=== PATIENT | male | born 1940 | race Caucasian/White ===

== ENCOUNTER 2020-01-01 10:23 | Outpatient (CLI) | payer MEDICARE, BC, SELFPAY ==
--- NOTE | ~2020-01-01 | US_ITS ---
EXAMINATION: US renal BI DATE: 01/01/2020 11:20 INDICATION: Nonspecific abnormal results of function studies of kidney. TECHNIQUE: Multiple ultrasound grayscale images of the kidneys were obtained. COMPARISON: CT abdomen and pelvis 03/14/2010 FINDINGS: The right kidney measures 10.6 x 5.6 x 4.9 cm. The left kidney measures 13.6 x 6.0 x 5.4 cm. The kidn eys demonstrate normal parenchymal echogenicity. There is a 4.1 cm isoechoic mass in upper pole of le ft kidney. There is no hydronephrosis. The bladder is normal. IMPRESSION: 1. Normal kidney sizes. No hydronephrosis. 2. 4.1 cm isoechoic mass in upper pole of left kidney, which may be normal renal parenchyma or a sharon d neoplasm. Abdomen CT without and with contrast is recommended. Reviewed, dictated and finalized at location A. IMPRESSION: 1. Normal kidney sizes. No hydronephrosis. 2. 4.1 cm isoechoic mass in upper pole of left kidney, which may be normal saadia l parenchyma or a solid neoplasm. Abdomen CT without and with contrast is recom mended.
== END 2020-01-01 10:24 | disposition home or self-care (01) ==
LOC: ANHIMG 10:28
PROVIDERS: PCP Family Medicine; Visit Provider Internal Medicine Nephrology
DX: R94.4 Abnormal results of kidney function studies (principal)
CPT/HCPCS: 76775

== ENCOUNTER 2020-11-13 13:33 | Outpatient (CLI) | payer MEDICARE, BC, SELFPAY ==
--- NOTE | ~2020-11-13 | XR_ITS ---
EXAMINATION:XR_[id number]_CR DATE: 11/13/2020 14:02 INDICATION: Neck pain TECHNIQUE: AP, lateral, and odontoid views of the cervical spine are provided. COMPARISON: None FINDINGS: There are 3 mm of retrolisthesis of C5 on C6. The odontoid is intact. No fracture is identi fied. The vertebral body heights are maintained. There is severe loss of intervertebral disc space he ight at C5-6 and C6-7. Small degenerative osteophytes project from the anterior endplates of multiple vertebral bodies. There is moderate facet and uncovertebral joint osteoarthritis of the lower cervic al spine. Prevertebral soft tissues are normal. IMPRESSION: 1. Severe spondylosis of the lower cervical spine without acute findings. Reviewed, dictated and finalized at location A. BACKING STENCILER
== END 2020-11-13 13:34 | disposition home or self-care (01) ==
LOC: ANHIMG 13:40
PROVIDERS: PCP Nurse Practitioner Family; Visit Provider Nurse Practitioner Family
DX: M54.2 Cervicalgia (principal); M47.812 Spondylosis without myelopathy or radiculopathy, cervical region
CPT/HCPCS: 72040

== ENCOUNTER 2021-04-25 11:28 | Emergency (ER) | payer MEDICARE, BC, SELFPAY ==
--- NOTE | ~2021-04-25 | XR_ITS ---
EXAMINATION: XR finger 2nd LT min 2V EXAM DATE: 04/25/2021 13:52 INDICATION: Infection sore anterior side of left 2nd finger. TECHNIQUE: Left 2nd finger frontal, lateral and oblique projections obtained and reviewed. There i s no prior study for comparison. FINDINGS: Diffuse swelling over the left 2nd finger. There is moderate DIP, mild to moderate PIP everardo bethany osteoarthritis. There are small soft tissue defect along the volar aspect of the phalanx. There are no bony erosions identified. There are no acute fractures identified. Scattered arterial scleros is. IMPRESSION: 1. Soft tissue swelling, probable small ulceration. 2. Osteoarthritis. Reviewed, dictated and finalized at location B.
[2021-04-25 11:31] VITALS: BP 145/60; PULSE 58; RESP 18; TEMP 36; O2SAT 98
[2021-04-25 13:27] LABS: Basophils Percent Auto 0.4 % (0.2-1.2); Eosinophils Absolute Auto 0.1 K/mm3 (0-0.3); Eosinophils Percent Auto 1.1 % (0-4.4); Hematocrit 39.9 % (42.0-52.0); Hemoglobin 12.6 g/dL (14.0-18.0); Immature Granulocyte Absolute 0.03 K/mm3 (0.00-0.031); Immature Granulocyte Percent A 0.5 % (0-0.5); Lymphocytes Absolute Auto 0.68 K/mm3 (0.9-3.2); Lymphocytes Percent Auto 12.3 % (18.3-44.2); Mean Corpuscular HGB Conc 31.6 g/dl (32-36); Mean Corpuscular Volume 91.7 fl (80-100); Mean Platelet Volume 9.7 fl (7.4-10.4); Monocytes Absolute Auto 0.7 K/mm3 (0.1-0.6); Neutrophils Percent Auto 72.7 % (45.5-73.1); Platelet Count Result 193 k/mm3 (150-375); Red Blood Count 4.35 M/mm3 (4.6-6.20); Red Cell Distribution Width 14.7 % (11.5-14.5); White Blood Count 5.5 K/mm3 (4.5-10.0)
[2021-04-25 13:39] LABS: Anion Gap 13 mmol/L (8-16); Blood Urea Nitrogen 44 mg/dL (9-20); Carbon Dioxide 21 mmol/L (22-30); Chloride 103 mmol/L (98-107); Estimated CRCL calculation 43 ml/min; Estimated Glomerular Filt Rate 53; Glucose 199 mg/dL (65-110); Potassium 4.6 mmol/L (3.4-5.0); Sodium 137 mmol/L (137-145)
--- NOTE | 2021-04-25 14:07 | ED.SKABFB ---
HPI - Skin/Abscess/Foreign Bdy General Chief complaint: Skin/Abscess/Foreign Body Stated complaint: finger infection Time Seen by Provider: 04/25/21 12:00 History of Present Illness HPI narrative: Patient is an 80-year-old male who presents ER with a left second digit infection. Patient reports about 10 days ago he started having some discomfort in his finger. Mildly about 7 days ago he started develop some pustules/vesicles on the top of his finger at the DIP. His foods progressive to erythema of the finger with swelling. Limited range of motion due to swelling. Only mild amount of pain. No fevers or chills or sweats. No lymphangitic streaking up the arm. PCP recently started him on clindamycin 2 days ago. Patient denies working in the garden. The only thing he does outside is played golf. Related Data Home Medications Medication Instructions Recorded Confirmed amiodarone 200 mg tablet 200 mg PO DAILY 07/20/19 04/25/21 aspirin 81 mg tablet,delayed 81 mg PO DAILY 07/20/19 04/25/21 release carvedilol 3.125 mg tablet 3.125 mg PO BID tablet 07/20/19 04/25/21 famotidine-Ca carb-mag hydrox 10 1 tablet PO DAILY PRN 04/04/20 04/25/21 mg-800 mg-165 mg chewable tablet lisinopril 40 mg tablet 20 mg PO DAILY tablet 04/04/20 04/25/21 Allergies Allergy/AdvReac Type Severity Reaction Status Date / Time No Known Allergies Allergy Verified 05/13/20 08:41 Review of Systems Review of Systems: All systems reviewed & are unremarkable except as noted in HPI and below Constitutional: Constitutional: Denies chills, Denies fever(s) and Denies weakness Musculoskeletal: Musculoskeletal: Denies arthralgias, Denies joint swelling and Denies muscle cramps Integumentary/Breasts: Skin/Breast: Reports erythema, Denies rash and Reports skin ulcer Neurologic: Denies focal weakness and Denies numbness PMFSH Past Medical History Medical History Afib Allergic rhinitis Anemia Atrial tachycardia BPH loc w urin obs/LUTS CAD in [place] artery Cellulitis of finger of left hand Cerumen impaction Cervicalgia CKD (chronic kidney disease) stage 3, GFR 30-59 ml/min Decreased white blood cell count, unspecified H/O: HTN (hypertension) Heart disease History of [place] (myocardial infarction) History of peptic ulcer disease Hyperlipidemia with target low density lipoprotein (LDL) cholesterol less than 100 mg/dL Hypertension Neoplasm of skin Normal colonoscopy JOSE ALBERTO on CPAP Osteoarthritis Primary insomnia Tinnitus Type 2 diabetes mellitus Surgical History Surgical History History of bladder surgery History of cardiac cath History of coronary artery bypass graft History of tonsillectomy Family History Family History Mother Diabetes mellitus Cerebrovascular accident Hypertension Heart disease Sibling Diabetes mellitus Lupus (systemic lupus erythematosus) Cerebrovascular accident Cancer Hypertension Heart disease Grandparent Diabetes mellitus Heart disease Other Aneurysm Breast cancer COPD (chronic obstructive pulmonary disease) Social History Social History Years smoked: 5 Smoking status: Former smoker Second hand tobacco smoke exposure: No Smoking end date: 09/27/1963 Alcohol intake: former Alcohol use details: 5 years ago. Substance use: never Substance use type: does not use Gender identity (if verbalized by the patient): Male Spiritual care concerns: Yes Agree to blood products: Yes Exam Narrative: GENERAL: Well-appearing, well-nourished, and in no acute distress. HEAD: Normocephalic, atraumatic. EXTREMITIES: Focused exam of the right hand reveals swelling to the second digit with a blister wrapping from the dorsal aspect of the finger around to the palmar as
[2021-04-25 14:26] VITALS: BP 148/62; PULSE 60; RESP 16; O2SAT 100
== END 2021-04-25 14:27 | disposition home or self-care (01) ==
PROVIDERS: Emergency Provider Emergency Medicine; PCP Family Medicine
DX: B00.89 Other herpesviral infection (principal); I48.91 Unspecified atrial fibrillation; D64.9 Anemia, unspecified; N40.1 Benign prostatic hyperplasia with lower urinary tract symptoms; N13.8 Other obstructive and reflux uropathy; I25.10 Atherosclerotic heart disease of native coronary artery without angina pectoris; E11.22 Type 2 diabetes mellitus with diabetic chronic kidney disease; I12.9 Hypertensive chronic kidney disease with stage 1 through stage 4 chronic kidney disease, or unspecified chronic kidney disease; N18.30 Chronic kidney disease, stage 3 unspecified; I25.2 Old myocardial infarction; E78.5 Hyperlipidemia, unspecified; G47.33 Obstructive sleep apnea (adult) (pediatric); M19.042 Primary osteoarthritis, left hand; Z95.1 Presence of aortocoronary bypass graft; Z85.828 Personal history of other malignant neoplasm of skin; Z87.11 Personal history of peptic ulcer disease; Z79.82 Long term (current) use of aspirin; Z79.84 Long term (current) use of oral hypoglycemic drugs
CPT/HCPCS: 11042; 36415; 73140; 80048; 85025; 99283

== ENCOUNTER 2021-05-21 10:44 | Outpatient (CLI) | payer MEDICARE, BC, SELFPAY ==
--- NOTE | ~2021-05-21 | XR_ITS ---
EXAMINATION: XR finger 2nd LT min 2V DATE: 05/21/2021 11:20 INDICATION: Cellulitis and swelling of the left index finger TECHNIQUE: Dorsal palmar, lateral and oblique views of the left second digit were obtained COMPARISON: 04/25/2021 FINDINGS: No fracture. Polyarticular osteoarthritis, severe at the first carpometacarpal and second distal inte rphalangeal joints and mild at the first interphalangeal and second proximal interphalangeal joints. There is new osteolysis with both increased intramedullary lucency as well as loss of the previously clearly discernible articular cortex at the ulnar and palmar aspects of the base of the second distal phalanx which is concerning for septic arthritis with osteomyelitis. Persistent prominent soft tissu e swelling about the second digit. Scattered arterial vascular calcifications. IMPRESSION: 1. Osteolysis at the base of the left second distal phalanx suspicious for septic arthritis and osteo myelitis. Could consider further evaluation with pre and postcontrast MRI if this would affect clinic al management. Reviewed, dictated and finalized at location B. IMPRESSION: 1. Osteolysis at the base of the left second distal phalanx suspicious for sept ic arthritis and osteomyelitis. Could consider further evaluation with pre and postcontrast MRI if this would affect clinical management.
== END 2021-05-21 10:45 | disposition home or self-care (01) ==
PROVIDERS: PCP Family Medicine; Visit Provider Nurse Practitioner Family
DX: L03.012 Cellulitis of left finger (principal); R60.9 Edema, unspecified
CPT/HCPCS: 73140

== ENCOUNTER 2021-06-01 13:29 | Outpatient (CLI) | payer MEDICARE, BC, SELFPAY ==
--- NOTE | ~2021-06-01 | MR_ITS ---
EXAMINATION: MR hand LT wo/w con DATE: 06/01/2021 15:20 INDICATION: Left index finger osteomyelitis. TECHNIQUE: Magnetic resonance imaging (MRI) of the left hand was performed without and with 17 mL Mul tiHance intravenous contrast. Sequences included axial, coronal, and sagittal T1-weighted FSE and T2- weighted FS FSE, axial T1-weighted FS FSE, and postcontrast coronal and axial T1-weighted FS FSE. COMPARISON: Left hand second digit radiographs 04/25/2021, 05/21/2021 FINDINGS: Bone alignment is normal. No fracture. There is bone marrow edema involving diaphysis and h ead of second middle phalanx and the proximal two-thirds of second distal phalanx, consistent with os teomyelitis. There are skin defects near second distal interphalangeal joint. There is a 6 x 5 x 7 mm nonenhancing abscess palmar to the flexor tendon at the neck of second middle phalanx. There is mild flexor tenosynovitis of the second digit. There is soft tissue swelling of the second digit. There i s mild to moderate osteoarthritis of many of the interphalangeal joints. IMPRESSION: 1. Osteomyelitis involving second middle and distal phalanges. 2. 6 x 5 x 7 mm abscess palmar to the flexor tendon at the neck of second middle phalanx. 3. Mild flexor tenosynovitis of the second digit. Reviewed, dictated and finalized at location A. IMPRESSION: 1. Osteomyelitis involving second middle and distal phalanges. 2. 6 x 5 x 7 mm abscess palmar to the flexor tendon at the neck of second middl e phalanx. 3. Mild flexor tenosynovitis of the second digit.
[2021-06-01 14:36] LABS: Estimated Glomerular Filt Rate 49
== END 2021-06-01 13:30 | disposition home or self-care (01) ==
PROVIDERS: PCP Family Medicine; Visit Provider Plastic Surgery
DX: M86.8X4 Other osteomyelitis, hand (principal); M65.9 Synovitis and tenosynovitis, unspecified; L02.91 Cutaneous abscess, unspecified
CPT/HCPCS: 73220; A9577

== ENCOUNTER 2021-07-07 12:21 | Outpatient (CLI) | payer MEDICARE, BC, SELFPAY ==
--- NOTE | ~2021-07-07 | XR_ITS ---
XR finger 2nd LT min 2V DATE: 07/07/2021 12:48 INDICATION: Osteomyelitis TECHNIQUE: 3 views COMPARISON: 05/21/2021 left second digit FINDINGS: There is loss of distal interphalangeal joint space and bone destruction involving the neck and head of the middle phalanx and particularly prominently the base of the distal phalanx, consiste nt with septic arthritis and associated osteomyelitis of the apposing middle and distal phalanges. There is soft tissue swelling of the second digit, particularly distally. There is prominent arterial calcification of the metacarpal and interphalangeal arteries, most consis tent with diabetes IMPRESSION: Further advance of septic arthritis at the distal interphalangeal joint with osteomyeliti s including prominent bone destruction at the neck and head of the middle phalanx and the base of the distal phalanx Reviewed, dictated and finalized at location B. IMPRESSION: Further advance of septic arthritis at the distal interphalangeal j oint with osteomyelitis including prominent bone destruction at the neck and he ad of the middle phalanx and the base of the distal phalanx
== END 2021-07-07 12:22 | disposition home or self-care (01) ==
LOC: ANHIMG 12:26
PROVIDERS: PCP Nurse Practitioner Family; Visit Provider Plastic Surgery
DX: M86.142 Other acute osteomyelitis, left hand (principal)
CPT/HCPCS: 73140

== ENCOUNTER 2021-08-05 13:43 | Outpatient (CLI) | payer MEDICARE, BC, SELFPAY ==
--- NOTE | ~2021-08-05 | XR_ITS ---
EXAMINATION: XR finger 2nd LT min 2V EXAM DATE: 08/05/2021 14:31 INDICATION: Osteomyelitis. TECHNIQUE: Left 2nd finger frontal, lateral and oblique projections obtained and reviewed. Compariso n is made to prior examination from 07/07/2021. FINDINGS: Again there are punched out lytic erosions of the left 2nd middle phalangeal head, and dif fuse erosive change of the distal phalangeal base along with overlying soft tissue swelling. These er osions are unchanged in size but appear slightly better defined compared to previous examination, whi ch could indicate cessation of active erosive change. No new erosions identified. No definite healing response at this time. Vascular calcifications, arteriosclerosis. Mild polyarticular interphalangeal osteoarthritis. IMPRESSION: Stable osteolysis left 2nd digit, consistent with subacute appearing changes of osteomyel itis. Reviewed, dictated and finalized at location A. MACY LABORATORY TECHNICIAN IMPRESSION: Stable osteolysis left 2nd digit, consistent with subacute appearin g changes of osteomyelitis.
== END 2021-08-05 13:44 | disposition home or self-care (01) ==
LOC: ANHIMG 13:52
PROVIDERS: PCP Nurse Practitioner Family; Visit Provider Plastic Surgery
DX: M86.142 Other acute osteomyelitis, left hand (principal)
CPT/HCPCS: 73140

== ENCOUNTER 2021-08-27 00:55 | Day surgery (SDC) | payer MEDICARE, BC, SELFPAY ==
[2021-08-26 10:36] VITALS: BMI 27.3
--- NOTE | 2021-08-26 10:51 | PC.NURSE ---
Report to the Outpatient Waiting Room, entrance under the green pavilion located off [facility], at time ___914____ on date __08/27/21 . OR Time: ____1014____. - You and your visitor will be asked a series of questions to screen for COVID 19 for your protection. - A mask is required within the hospital. - Only one visitor is allowed at this time. Patient visitors will be guided where to wait when not with patient. Preoperative COVID Testing Requirements: No COVID Test needed if: (proof is required; if not received patient will have Rapid Test prior to entry) - Patient has received COVID Vaccine at least 14 days prior to procedure date or - Patient has positive COVID test result within last 90 days of surgery date. COVID Test needed if above criteria is not met If not COVID vaccinated a COVID test must be conducted within 72 hours of surgery and patient is asked to isolate self from time of testing until procedure. You will go to the [facility] for your COVID testing. [facility] is located at the corner of [address] [facility]. You will only be called if COVID results are positive and your surgeon may reschedule your elective surgery date. Patients may have clear liquids (water, carbonated beverages, clear teas, apple juice) until 3 hours prior to surgery with a maximum of 20 ounces. - No food from midnight until time of surgery LIGHT BREAKFAST/LOCAL ANESTHESIA - Infants may have breast milk until 4 hours before surgery, formula 6 hours prior to surgery. - Children will be allowed to drink immediately following surgery. If applicable, please bring a bottle or sippy cup to assist with drinking. Juice, water, soda, and popsicles are readily available. For infants on formula, please bring formula the day of surgery. Pacifiers are allowed. Take the following medications with a SIP of water the morning of surgery: ____AM MEDS Medications to discontinue per physician NONE Date to take last dose Please no make-up, nail swedish, hairspray, perfume, deodorant, or body powder the day of surgery. No jewelry (including any body piercings) or valuables the day of surgery, leave them at home. Please take a shower or bath the night before, or the morning of, surgery with an antibacterial soap. Wear comfortable, loose fitting clothing. Children are encouraged to wear pajamas. - Jewelry must be removed prior to entering the operating room. Rings and piercings that are not removed may be cut off. - The hospital will not accept responsibility for valuables. - Please leave all valuables, including medications, at home the day of surgery. If you are going home after surgery, a licensed combine driver must drive you home. - NO public transportation without another adult. - We recommend that an adult stay with you for 24 hours following discharge. - We also recommend that you do not drive, make important decision, drink alcoholic beverages, or take any drugs that were not prescribed by your health care provider for at least 24 hours after your discharge time. For Pediatric surgeries, we recommend two adults accompany the child home (only one inside the building at this time). Follow any additional instructions given to you from your surgeon. Telephone instructions given to __PATIENT and asked if any additional questions and then verbalized understanding. Patient advised to call surgeon office or pre surgery nurse liaison [phone] if any additional questions.
[2021-08-27] VITALS (9 sets, daily range): BP systolic 119–140; BP diastolic 51–65; PULSE 49–51; RESP 12–22; TEMP 36.6; O2SAT 94–99
--- NOTE | 2021-08-27 07:16 | WPDHPUPDATE1 ---
History and Physical Update Update Date/Time: 08/27/21 07:16 History and Physical has been reviewed, including an updated exam of the patient. There are NO changes in the patient's condition. Risks, benefits, and alternatives have been discussed and questions answered. Patient agrees to proceed with procedure.
[2021-08-27] MEDS: LIDO 1%/EPINEPHRINE 1:100,000 50 ML VIAL INFILTRATE (11:40)
--- NOTE | 2021-08-27 12:09 | W.PM.PROC2 ---
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 There was some phlegmonous tissue within the destroyed joint space. The extensor tendon the was intact and fair condition the subcutaneous tissue under the skin flaps was viable the region of damaged tissue appeared to be limited to the joint. Description of Procedure The patient's left index finger was marked in the holding area. He was taken to the operating room where he was placed supine on the operating table. The left hand was on the hand board in this area was prepped and draped in usual fashion. The digit was blocked initially with 1% lidocaine with epinephrine. Eventually 6 milliliter of 0.5% Marcaine plain was added. The blue tourniquet was applied to the base of the finger. Three small ulcerations over the dorsal distal interphalangeal joint were connected with our incision down the dorsal midline. The patient said that he had drained fluid from those sites today and I saw pictures of that on his cellphone. The finger today looked a little less red and edematous then had the last I saw him a few days ago. Skin flaps were elevated on a to both sides about a cm on the ulnar aspect and just a few mm on the radial. The tissue proximal to the joint did not appear to be grossly infected or damaged by the long-term inflammatory process. We obtained a We obtained fluid from the joint area for aerobes and anaerobes and for AFB and fungus. We obtain some tissue for histology. And some fluid was sent in 70% isopropyl alcohol for crystals. We eventually referred from the lab that they might not be able to utilize the tissue because of the amount of blood was in that fluid in the fact that it was in isopropyl alcohol. It will nevertheless look at it. The disintegrating joint area was curetted until no additional phlegmon was material could be removed this was amorphous yellow-bower tissue without blood supply consistent with chronic inflammation. No attempt was made to repair the joint today. The site was irrigated with about 500 milliliter of saline and the dorsal wound was dressed with Mepilex Silver and gauze without a compressive wrap. He was discharged from the operating room. He will continue on the Bactrim previously ordered seems to be tolerating that. I sent did additional order for a week. We also sent a prescription for hydrocodone 7. The tourniquet was removed from the finger prior to dressing there was no significant bleeding. Estimated Blood Loss 0 Drains No Packing Yes Pathology yes Complications No immediate complications Condition stable Disposition same day
== END 2021-08-27 12:17 | disposition home or self-care (01) ==
PROVIDERS: PCP Nurse Practitioner Family; Visit Provider Plastic Surgery
PROC: (CPT 10061; principal; 2021-08-27 10:15)
DX: L02.512 Cutaneous abscess of left hand (principal); M86.142 Other acute osteomyelitis, left hand; M65.842 Other synovitis and tenosynovitis, left hand
CPT/HCPCS: 10061; 87015; 87070; 87075; 87102; 87116; 87147; 87181; 87186; 87205; 87206; 88304; 88305; 88311; A9270; J3010

== ENCOUNTER 2021-10-06 12:26 | Outpatient (CLI) | payer MEDICARE, BC, SELFPAY ==
--- NOTE | ~2021-10-06 | XR_ITS ---
EXAMINATION: XR finger 2nd LT min 2V INDICATION: Osteomyelitis follow-up TECHNIQUE: Three views of the left second finger are obtained. COMPARISON: 08/05/2021 and 07/07/2021 FINDINGS: There is osteomyelitis at the distal aspect of the second middle phalanx with interval wors ening since the comparison examinations. There is osteomyelitis involving the proximal aspect of the first distal phalanx without significant change since the comparison examination. There is unchanged mild lateral subluxation of the first distal phalanx with respect to the middle phalanx. Soft tissue swelling is seen in the second finger, predominantly in its distal aspect. Calcified atherosclerosis is noted. IMPRESSION: 1. Osteomyelitis centered at the second distal interphalangeal joint with interval worsening at the m iddle phalanx. Reviewed, dictated and finalized at location F. EL SERVICE TECHNICIAN IMPRESSION: 1. Osteomyelitis centered at the second distal interphalangeal joint with inter marium worsening at the middle phalanx.
== END 2021-10-06 12:27 | disposition home or self-care (01) ==
LOC: ANHIMG 12:31
PROVIDERS: PCP Nurse Practitioner Family; Visit Provider Plastic Surgery
DX: M86.142 Other acute osteomyelitis, left hand (principal)
CPT/HCPCS: 73140

== ENCOUNTER 2021-11-03 08:35 | Outpatient (CLI) | payer MEDICARE, BC, SELFPAY ==
--- NOTE | ~2021-11-03 | XR_ITS ---
XR finger 2nd LT min 2V DATE: 11/03/2021 08:51 INDICATION: Osteomyelitis TECHNIQUE: 4 views COMPARISON: 10/06/2021 left second digit FINDINGS: Again noted is distal interphalangeal joint destruction and apposing bone destruction at th e head of the middle phalanx and base of the distal phalanx, consistent with osteomyelitis. There is prominent second digital artery calcification in addition to metatarsal artery calcification s, likely due to diabetes. IMPRESSION: Persistent osteomyelitis centered at the distal interphalangeal joint of the second digit ; little interval change since 10/06/2021 Arterial calcification of metatarsal and digital arteries most consistent with diabetes Reviewed, dictated and finalized at location A. MITER OPERATOR IMPRESSION: Persistent osteomyelitis centered at the distal interphalangeal greg nt of the second digit; little interval change since 10/06/2021 Arterial calcification of metatarsal and digital arteries most consistent with diabetes
== END 2021-11-03 08:36 | disposition home or self-care (01) ==
PROVIDERS: PCP Nurse Practitioner Family; Visit Provider Plastic Surgery
DX: M86.142 Other acute osteomyelitis, left hand (principal)
CPT/HCPCS: 73140

== ENCOUNTER 2021-11-03 13:58 | Emergency (ER) | payer MEDICARE, BC, SELFPAY ==
--- NOTE | ~2021-11-03 | XR_ITS ---
EXAMINATION: XR finger 1st RT min 2V DATE: 11/03/2021 14:18 INDICATION: Table saw injury with laceration into the nailbed of the right thumb TECHNIQUE: Dorsal palmar, lateral and 2 oblique views of the right first digit were obtained COMPARISON: None FINDINGS: Oblique defect with sharp linear margins involving the ulnar side of the tuft of the right first dist al phalanx consistent with fracture related to the reported table saw injury. There is a small residu al bone fragment thigh proximally 3 mm from this defect. Bone alignment is otherwise unrema rkable. No other fractures identified. Polyarticular osteoarthritis, moderate severity at the first m etacarpophalangeal joint and mild at the first carpometacarpal and first interphalangeal joints. Scat tered vascular calcifications. IMPRESSION: 1. Open/compound fracture with loss of bone at the ulnar side of the tuft of the right first distal p halanx. Reviewed, dictated and finalized at location A. ICE PARTS COORDINATOR IMPRESSION: 1. Open/compound fracture with loss of bone at the ulnar side of the tuft of th e right first distal phalanx.
--- NOTE | 2021-11-03 14:06 | ED.WOUNDLAC ---
HPI - Wound/Laceration General Chief Complaint: Wound/Laceration Stated Complaint: Cut Thumb Rt on Hand Time Seen by Provider: 11/03/21 14:10 Source: patient, family, RN notes reviewed and old records reviewed Mode of arrival: ambulatory Limitations: no limitations History of Present Illness HPI narrative: 81 year old male accompanied by presents to express care with laceration to his right distal thumb from table saw injury. Patient has oblique cut across the top of thumb with part of distal nail(ulnar side) also involved with flap of skin holding thumb tissue, acute bleeding noted.Patient 's last tetanus was 2013, updated Boostrix in clinic today given. X-ray completed with compound open fracture with loss of bone distal ulnar side noted of tuft of thumb. Patient is presently under care also of Dr Centeno for left index finger abscess osteomyelitis and is presently on Bactrim after completing IV antibiotics via PICC Line. Patient is right hand dominant. Onset (ago): hour(s) (Occurred at 1345 today) Location: other (right thumb) Extremity Location: Right: hand (right thumb) Related Data Home Medications Medication Instructions Recorded Confirmed amiodarone 200 mg tablet 200 mg PO QAM 07/20/19 11/03/21 aspirin 81 mg tablet,delayed 81 mg PO DAILY 07/20/19 11/03/21 release carvedilol 3.125 mg tablet 3.125 mg PO BID tablet 07/20/19 11/03/21 amlodipine 5 mg PO QAM 08/26/21 11/03/21 lisinopril 20 mg PO QAM 08/26/21 11/03/21 metformin 1,000 mg PO BID 08/26/21 11/03/21 canagliflozin [Invokana] 300 mg PO DAILY 11/03/21 11/03/21 furosemide 10 mg PO DAILY 11/03/21 11/03/21 Allergies Allergy/AdvReac Type Severity Reaction Status Date / Time No Known Allergies Allergy Verified 11/03/21 14:00 Review of Systems Review of Systems: CONSTITUTIONAL: Denies fever, chills, or sweats. EYES: Denies visual changes, redness, or discharge. ENT: Denies rhinorrhea, congestion, sore throat, or otalgia. CARDIOVASCULAR: Denies chest pain, palpitations, or edema. RESPIRATORY: Denies cough or dyspnea. GASTROINTESTINAL: Denies abdominal pain, nausea, vomiting, or diarrhea. GENITOURINARY: Denies dysuria or hematuria. SKIN: Denies rash or itching, positive for laceration to right distal thumb with nail involvement MUSCULOSKELETAL: Denies back pain, joint pain, or myalgia. NEUROLOGIC: Denies headache, numbness, or weakness. PSYCHIATRIC: Denies anxiety or depression. All systems reviewed & are unremarkable except as noted in HPI and below PMFSH Past Medical History Medical History (Updated 11/03/21 @ 14:51 by Tanja Grady NP) Afib Allergic rhinitis Anemia Atrial tachycardia Atypical atrial flutter BPH loc w urin obs/LUTS CAD in [place] artery Cardiomyopathy, ischemic Cellulitis of finger of left hand Cerumen impaction Cervicalgia CKD (chronic kidney disease) stage 3, GFR 30-59 ml/min Decreased white blood cell count, unspecified H/O: HTN (hypertension) Heart disease History of [place] (myocardial infarction) History of peptic ulcer disease Hyperlipidemia with target low density lipoprotein (LDL) cholesterol less than 100 mg/dL Hypertension Insomnia Neoplasm of skin Normal colonoscopy JOSE ALBERTO on CPAP Osteoarthritis Primary insomnia Serum potassium elevated Tinnitus Type 2 diabetes mellitus Surgical History Surgical History History of bladder surgery History of cardiac cath History of coronary artery bypass graft History of tonsillectomy Family History Family History Mother Diabetes mellitus Cerebrovascular accident Hypertension Heart disease Sibling Diabetes mellitus Lupus (systemic lupus erythematosus) Cerebrovascular accident Cancer Hypertension Heart disease Grandparent Diabetes mellitus Heart disease Other Aneurysm Breast cancer COPD (chronic obstructive pulmonary disease) Social Hi
[2021-11-03 14:07] VITALS: BP 151/69; PULSE 62; RESP 18; TEMP 36.2; O2SAT 97
[2021-11-03] MEDS: TETANUS,DIPHTHERIA,AC PERTUSSIS ADULT (0.5 ML) BOOSTRIX IM (14:22)
== END 2021-11-03 14:30 | disposition other institution (70) ==
PROVIDERS: Emergency Provider Registered Nurse; PCP Nurse Practitioner Family
DX: S62.521B Displaced fracture of distal phalanx of right thumb, initial encounter for open fracture (principal); W31.2XXA Contact with powered woodworking and forming machines, initial encounter; Z23 Encounter for immunization; Z87.891 Personal history of nicotine dependence; Z95.1 Presence of aortocoronary bypass graft; I48.91 Unspecified atrial fibrillation; I25.10 Atherosclerotic heart disease of native coronary artery without angina pectoris; I12.9 Hypertensive chronic kidney disease with stage 1 through stage 4 chronic kidney disease, or unspecified chronic kidney disease; E11.22 Type 2 diabetes mellitus with diabetic chronic kidney disease; N18.30 Chronic kidney disease, stage 3 unspecified; I25.2 Old myocardial infarction; E78.5 Hyperlipidemia, unspecified; G47.33 Obstructive sleep apnea (adult) (pediatric); M19.90 Unspecified osteoarthritis, unspecified site
CPT/HCPCS: 73140; 90471; 90714; 90715; 99213; G0463

== ENCOUNTER 2021-12-09 08:53 | Outpatient (CLI) | payer MEDICARE, BC, SELFPAY ==
--- NOTE | ~2021-12-09 | XR_ITS ---
EXAMINATION: XR finger 2nd LT min 2V DATE: 12/09/2021 09:08 INDICATION: Osteomyelitis at the distal left second digit TECHNIQUE: Dorsal palmar, lateral and 2 oblique views of the left second digit were obtained COMPARISON: None FINDINGS: Widening of the second distal interphalangeal joint space with stable appearance of osteolysis involv ing the base of the distal phalanx and head of the middle phalanx consistent with septic arthritis an d osteomyelitis. The margins of the osteolysis remain without cortication. There is secondary mild ul homero subluxation and radial angulation at the distal interphalangeal joint. Normal alignment and remai nder of the visualized left hand. No new fractures or osteolysis. Polyarticular osteoarthritis, moder ate to severe at the first carpometacarpal joint and mild at the first metacarpophalangeal and a few of the profiled interphalangeal joints. There are scattered vascular calcification is in the visualiz ed hand. IMPRESSION: 1. No interval progression in the septic arthritis and osteomyelitis at the left second distal interp halangeal joint. Reviewed, dictated and finalized at location A. IMPRESSION: 1. No interval progression in the septic arthritis and osteomyelitis at the lef t second distal interphalangeal joint.
== END 2021-12-09 08:54 | disposition home or self-care (01) ==
LOC: ANHIMG 08:55
PROVIDERS: PCP Family Medicine; Visit Provider Plastic Surgery
DX: M86.142 Other acute osteomyelitis, left hand (principal); M18.12 Unilateral primary osteoarthritis of first carpometacarpal joint, left hand
CPT/HCPCS: 73140

== ENCOUNTER 2022-08-07 09:04 | Observation (INO) | payer MEDICARE, BC, SELFPAY ==
[2022-08-07] VITALS (15 sets, daily range): BP systolic 93–159; BP diastolic 33–78; PULSE 54–84; RESP 14–29; TEMP 36.2–37.2; O2SAT 88–100; BMI 26.2
--- NOTE | 2022-08-07 | ECHO_ITS ---
Patient Info Name: Reggie Bahena Age: 82 years : 1940 Gender: Male Ht: 71 in Wt: 192 lbs BSA: 2.10 m2 HR: 59 bpm BP: 147 / 66 mmHg Heart Rhythm: Sinus Rhythm Technical Quality: Fair Exam Date: 08/07/2022 3:41 PM Exam Location: [facility] Card Pulmonary Patient Status: Inpatient Admit Date: 08/07/2022 Staff Ordering Physician: Neymar Engle MD Relief Docking Master: Jing Reynaga RDCS Attending Provider: Manfred Espitia MD Referring Physician: Kadie NICHOLS; Exam Type: CA echo doppler color flow Study Info Indications - chf Complete two-dimensional, color flow and Doppler transthoracic echocardiogram is performed. Summary 1. Complete two-dimensional, color flow and Doppler transthoracic echocardiogram is performed. 2. Left ventricular systolic function is moderately reduced, estimated at 35-40%. 3. The posterior segment is akinetic. 4. The inferior segment is severely hypodynamic. 5. Left atrial chamber dimension is moderately enlarged. 6. There is mild mitral valve regurgitation. Left Ventricle Left ventricular chamber dimension is mildly enlarged. Left ventricular systolic function is moderately reduced, estimated at 35-40%. The left ventricular diastolic function is normal. The posterior segment is akinetic. The inferior segment is severely hypodynamic. Right Ventricle Right ventricular chamber dimension is normal. Left Atria Left atrial chamber dimension is moderately enlarged. Right Atria Right atrial chamber dimension is mildly enlarged. Aortic Valve The aortic valve is normal. Pulmonic Valve The pulmonic valve is normal. Mitral Valve The mitral valve has normal leaflets. There is mild mitral valve regurgitation. Tricuspid Valve The tricuspid valve leaflets are normal. There is mild tricuspid valve regurgitation. Pericardium/Pleural The pericardium appears normal. Aorta The aortic root size at the sinus of Valsalva is normal. Left Ventricular Outflow Tract Name Value Normal LVOT 2D LVOT Diameter 2.0 cm LVOT Doppler LVOT Peak Gradient 1 mmHg LVOT Mean Gradient 1 mmHg LVOT VTI 12 cm LVOT VTI/AV VTI Ratio 0.5 LVOT Stroke Volume 36 ml LVOT CO 2.2 l/min LVOT CI 1.1 l/min/m2 Pulmonic Valve Name Value Normal RVOT Doppler RVOT Peak Gradient 2 mmHg PV Doppler PV Peak Gradient 2 mmHg Mitral Valve Name Value Normal
--- NOTE | ~2022-08-07 | US_ITS ---
EXAMINATION: US venous doppler [facility] DATE: 08/07/2022 10:38 INDICATION: Bilateral lower limb swelling TECHNIQUE: Anderson scale images without and with compression and Doppler images of the bilateral lower e xtremity veins were obtained. COMPARISON: None FINDINGS: The right common femoral vein, profunda femoral vein, femoral vein, popliteal vein, peroneal trunk, p osterior tibial veins, and greater saphenous vein are patent. The left common femoral vein, profunda femoral vein, femoral vein, popliteal vein, peroneal trunk, po sterior tibial veins, and greater saphenous vein are patent. IMPRESSION: 1. Patent bilateral lower extremity veins. No evidence of deep venous thrombosis. Reviewed, dictated and finalized at location B. SPECIALTY SUPERVISOR IMPRESSION: 1. Patent bilateral lower extremity veins. No evidence of deep venous thrombosi s.
--- NOTE | ~2022-08-07 | XR_ITS ---
EXAMINATION: XR chest 2V DATE: 08/07/2022 09:37 INDICATION: Shortness of breath TECHNIQUE: PA and lateral views of the chest are obtained. COMPARISON: 07/21/2018 FINDINGS: There are small pleural effusions. No pneumothorax is identified. The heart size is normal. There are minimal airspace opacities of the lower lung zones. There is mild thoracic spondylosis. IMPRESSION: 1. Small pleural effusions. 2. Bibasilar airspace opacities, consistent with atelectasis versus pneumonia. Reviewed, dictated and finalized at location B. ICAL SUPERVISOR
--- NOTE | 2022-08-07 09:08 | ECG_ITS ---
Measurements Intervals [place] Rate: 69 P: -6 OR: 297 QRS: 92 QRSD: 162 T: -18 QT: 460 QTc: 495 Interpretive Statements SINUS RHYTHM WITH FIRST DEGREE AV BLOCK RIGHT BUNDLE BRANCH BLOCK ABNORMAL ECG NO PREVIOUS ECG AVAILABLE FOR COMPARISON Electronically Signed On 08-07-2022 9:34:11 ANALYTICAL CHEMISTRY TEACHER by Jaycob Abel D.O.
[2022-08-07 09:28] LABS: Basophils Percent Auto 0.7 % (0.2-1.2); Eosinophils Absolute Auto 0.1 K/mm3 (0-0.3); Eosinophils Percent Auto 1.5 % (0-4.4); Hematocrit 40.4 % (42.0-52.0); Hemoglobin 12.7 g/dL (14.0-18.0); Immature Granulocyte Absolute 0.02 K/mm3 (0.00-0.031); Immature Granulocyte Percent A 0.5 % (0-0.5); Lymphocytes Absolute Auto 0.81 K/mm3 (0.9-3.2); Mean Corpuscular HGB Conc 31.4 g/dl (32-36); Mean Corpuscular Volume 95.3 fl (80-100); Monocytes Absolute Auto 0.5 K/mm3 (0.1-0.6); Monocytes Percent Auto 13.1 % (2.6-8.5); Neutrophils Absolute Auto 2.6 K/mm3 (1.3-6.7); Neutrophils Percent Auto 64.2 % (45.5-73.1); Platelet Count Result 168 k/mm3 (150-375); Red Blood Count 4.24 M/mm3 (4.6-6.20); Red Cell Distribution Width 14.8 % (11.5-14.5); White Blood Count 4.1 K/mm3 (4.5-10.0)
[2022-08-07 09:39] LABS: INR 1.1; Prothrombin Time 13.6 Seconds (11.1-14.7)
[2022-08-07 09:40] LABS: Alanine Aminotransferase 27 U/L (6-50); Albumin Level 4.7 g/dL (3.5-5.1); Alkaline Phosphatase 81 U/L (38-126); Anion Gap 13 mmol/L (8-16); Aspartate Amino Transferase 34 U/L (17-59); Bilirubin,Total 0.7 mg/dL (0.2-1.3); Blood Urea Nitrogen 30 mg/dL (9-20); Calcium 9.7 mg/dL (8.4-10.2); Carbon Dioxide 23 mmol/L (22-30); Chloride 102 mmol/L (98-107); Estimated CRCL calculation 44 ml/min; Estimated Glomerular Filt Rate 58; Glucose 103 mg/dL (65-110); Partial Thromboplastin Time 32.4 SECONDS (22.3-36.8); Potassium 4.7 mmol/L (3.4-5.0); Sodium 138 mmol/L (137-145)
--- NOTE | 2022-08-07 09:41 | ED.SOB ---
HPI - SOB/Dyspnea General Chief Complaint: Shortness of Breath/Dyspnea <Rhea Kelly PA-C - Last Filed: 08/07/22 18:27> Stated Complaint: retaining fluid <Rhea Kelly PA-C - Last Filed: 08/07/22 18:27> Time Seen by Provider: 08/07/22 09:37 <CONCEPCION Trevizo Last Filed: 08/07/22 18:27> Source: patient <CONCEPCION Trevizo Last Filed: 08/07/22 18:27> Mode of arrival: ambulatory <CONCEPCION Trevizo Last Filed: 08/07/22 18:27> Limitations: no limitations <CONCEPCION Trevizo Last Filed: 08/07/22 18:27> History of Present Illness HPI Narrative: Patient is an 82-year-old male who presents the ED with report of SOB and BLE edema. Patient reports having nonpainful swelling in his bilateral lower extremities, feet, ankles for the past 3 days. He denies ever having swelling like this before. He is not on any diuretic therapy. Denies history of heart failure. He also reports having increased shortness of breath, worse with exertion and laying flat over the past 3 days. He saw his primary care doctor today who referred him to the ED for further evaluation. Patient sees Dr. Avina for history of atrial fibrillation and CAD. He denies any chest pain over the last 3 days. Denies recent cough or cold symptoms, fevers, abdominal pain, nausea, vomiting. <Rhea Kelly PA-C - Last Filed: 08/07/22 18:27> Related Data Home Medications: Home Medications Medication Instructions Recorded Confirmed amiodarone 200 mg tablet 200 mg PO QAM 07/20/19 08/07/22 aspirin 81 mg tablet,delayed 81 mg PO DAILY 07/20/19 08/07/22 release carvedilol 3.125 mg tablet 3.125 mg PO BID 07/20/19 08/07/22 cholecalciferol (vitamin D3) 125 125 mcg PO DAILY 03/16/22 08/07/22 mcg (5,000 unit) capsule dapagliflozin 10 mg tablet 10 mg PO DAILY 03/16/22 08/07/22 (Farxiga) mecobalamin (vitamin B12) 1,000 1,000 mcg PO DAILY 03/16/22 08/07/22 mcg chewable tablet lovastatin 40 mg tablet 40 mg PO DAILY 07/21/22 08/07/22 <Rhea Kelly PA-C - Last Filed: 08/07/22 18:27> Allergies/Adverse Reactions: Allergies Allergy/AdvReac Type Severity Reaction Status Date / Time No Known Allergies Allergy Verified 08/07/22 13:35 <Rhea Kelly PA-C - Last Filed: 08/07/22 18:27> Review of Systems Review of Systems: CONSTITUTIONAL: Denies fever, chills, or sweats. ENT: Denies rhinorrhea, congestion, sore throat. CARDIOVASCULAR: Reports BLE edema. Denies chest pain. RESPIRATORY: Reports SOB, CORTÉS, orthopnea. Denies cough. GASTROINTESTINAL: Denies abdominal pain, nausea, vomiting. SKIN: Denies rash or itching. MUSCULOSKELETAL: Denies BLE pain. NEUROLOGIC: Denies tingling, numbness, or weakness. <Rhea Kelly PA-C - Last Filed: 08/07/22 18:27> All systems reviewed & are unremarkable except as noted in HPI and below <Rhea Kelly PA-C - Last Filed: 08/07/22 18:27> [facility] Past Medical History Medical History: Medical History Acute systolic (congestive) heart failure Afib Allergic rhinitis Anemia Atrial tachycardia Atypical atrial flutter B12 deficiency BPH loc w urin obs/LUTS CAD in [place] artery Cardiomyopathy, ischemic Cellulitis of finger of left hand Cerumen impaction Cervicalgia CKD (chronic kidney disease) stage 3, GFR 30-59 ml/min Decreased white blood cell count, unspecified H/O: HTN (hypertension) Heart disease History of [place] (myocardial infarction) History of peptic ulcer disease Hyperlipidemia with target low density lipoprotein (LDL) cholesterol less than 100 mg/dL Hypertension Insomnia Neoplasm of skin Normal colonoscopy JOSE ALBERTO on CPAP Osteoarthritis Primary insomnia Serum potassium elevated Tinnitus Type 2 diabetes mellitus Type 2 diabetes mellitus with mild nonproliferative diabetic retinopathy without macular edema, bilateral (05/19
[2022-08-07 09:51] LABS: NT Pro B Type Natriuretic Pept 5900 pg/mL (5-100); Troponin I < 0.012 ng/mL (0.000-0.034)
[2022-08-07] MEDS: FUROSEMIDE INJ 40 MG/4 ML VIAL IV PUSH (10:54)
[2022-08-07 11:00] LABS: Influenza A QL RT-PCR Negative (Negative); Influenza B QL RT-PCR Negative (Negative); SARS-CoV-2 RNA PCR Negative
--- NOTE | 2022-08-07 12:44 | PC.NURSE ---
Patient care report called to NEHA Corrales. All questions answered at this time.
--- NOTE | 2022-08-07 13:08 | PM.IMHP ---
H&P: HPI History of Present Illness Date/Time: 08/07/22 13:08 Chief Complaint: Shortness of breath 3 days Narrative: 82 years old male with history of coronary artery disease and chronic atrial fibrillation was admitted through the emergency room with complaints of having increased shortness of breath, increased edema of the lower extremity, dyspnea on exertion and paroxysmal nocturnal dyspnea going on for the last 3 days. Patient however denies any chest pain. patient denies fever and chills. No nausea or vomiting. Patient was seen by his primary care doctor in the office today and was advised to go to the emergency room for evaluation. Review of Systems Review of Systems: All systems reviewed & are unremarkable except as noted in HPI and below ( in the history and physical examination.) [facility] Past Medical History Medical History (Updated 08/07/22 @ 13:14 by Neymar Engle MD) Acute systolic (congestive) heart failure Afib Allergic rhinitis Anemia Atrial tachycardia Atypical atrial flutter B12 deficiency BPH loc w urin obs/LUTS CAD in [place] artery Cardiomyopathy, ischemic Cellulitis of finger of left hand Cerumen impaction Cervicalgia CKD (chronic kidney disease) stage 3, GFR 30-59 ml/min Decreased white blood cell count, unspecified H/O: HTN (hypertension) Heart disease History of [place] (myocardial infarction) History of peptic ulcer disease Hyperlipidemia with target low density lipoprotein (LDL) cholesterol less than 100 mg/dL Hypertension Insomnia Neoplasm of skin Normal colonoscopy JOSE ALBERTO on CPAP Osteoarthritis Primary insomnia Serum potassium elevated Tinnitus Type 2 diabetes mellitus Type 2 diabetes mellitus with mild nonproliferative diabetic retinopathy without macular edema, bilateral (05/19/22) Dilated eye exam 05/19/2022 with mild nonproliferative diabetic retinopathy with no macular edema Vitamin D deficiency Surgical History Surgical History History of bladder surgery History of cardiac cath History of coronary artery bypass graft History of tonsillectomy Family History Family History Mother Diabetes mellitus Cerebrovascular accident Hypertension Heart disease Sibling Diabetes mellitus Lupus (systemic lupus erythematosus) Cerebrovascular accident Cancer Hypertension Heart disease Grandparent Diabetes mellitus Heart disease Other Aneurysm Breast cancer COPD (chronic obstructive pulmonary disease) Social History Social History Smoking packs per day: 1 Smoking cigarettes per day: 20.0 Years smoked: 10 Smoking pack-years: 10.00 Smoking status: Former smoker Tobacco type: cigarettes Second hand tobacco smoke exposure: No Smoking end date: 03/27/1966 Alcohol intake: current Alcohol use details: Rarely Substance use: never Substance use type: does not use Lack of Transportation: No Lack of Food: Never True Current Housing: I Have Housing Concerned About Future Housing: No Difficulty Paying Gas/Electric Bills: No Difficulty Paying for Meds: No Currently Unemployed: No Education: High School Diploma/GED Difficulty w/ Childcare or Family Care: No Additional living arrangements comments: Gender identity (if verbalized by the patient): Male Spiritual care concerns: No Agree to blood products: Yes Meds Home Medications and Allergies Home Medications Medication Instructions Recorded Confirmed Type amiodarone 200 mg tablet 200 mg PO QAM 07/20/19 08/07/22 History aspirin 81 mg tablet,delayed 81 mg PO DAILY 07/20/19 08/07/22 History release carvedilol 3.125 mg tablet 3.125 mg PO BID 07/20/19 08/07/22 History amlodipine 5 mg tablet 5 mg PO QAM #90 tabs 02/01/22 08/07/22 Rx metformin 500 mg tablet,extended 1,000 mg PO BID #
--- NOTE | 2022-08-07 13:35 | ADMGEN ---
This patient, Reggie Bahena, was admitted to IMU Room 205-01. Patient/family oriented to hospital policies and general routines including ID bracelet, bed and alarms, visiting hours, pain management, procedures, bathroom and other care routines, personal items, smoking policy, room service/diet, and visiting hours. Information on how to activate the Rapid Response Team has been discussed. Patient/Family are encouraged to report perceived risks to care and to ask questions if they do not understand what they are told or what they should do.
[2022-08-07 14:25] LABS: Troponin I < 0.012 ng/mL (0.000-0.034)
--- NOTE | 2022-08-07 14:56 | PM.CNCAR ---
Assessment and Plan Assessment and plan (1) Cardiomyopathy, ischemic: Code(s): I25.5 - Ischemic cardiomyopathy Status: Acute Plan This is an 82-year-old man with ischemic heart disease known to have ischemic left ventricular dysfunction presenting for the 1st time with decompensated heart failure with reduced ejection fraction. At this point I would recommend continuing his furosemide until he is euvolemic. I am going to add spironolactone to his regimen and stop his lisinopril in anticipation of starting Entresto in about 36 hours. Depending on how hemodynamics we will slowly advance his carvedilol. In this setting I would recommend discontinuing his amlodipine as well to allow us to more effectively use guideline directed medical therapy. Echocardiogram has been ordered by the hospitalist that is fine we expected to show evidence of ischemic LV dysfunction which has a mentioned above he is known to have. Hopefully this can be brought into a state of good compensation in the next several days and he will of course be followed up as an outpatient after he is hemodynamically improved. Alvino Avina MD [facility] History of Present Illness History of Present Illness Consult date/time: 08/07/22 14:56 Reason For Visit: Acute Heart Failure Narrative: This is a very pleasant 82-year-old man with ischemic heart disease who is well known to me who enters the hospital today at the request of his PCP was saw him in the office this morning with evidence of decompensated congestive heart failure. The patient states that he went to see his physician because he noticed Wednesday and Wednesday of this week he was having some lower extremity edema that was developing he noticed this when after he got home playing a round of golf. He golfs several times per week and enjoys that. He then the last couple of nights was also having some shortness of breath with lying in the supine position and last night said he had to sit up in bed and sat in a chair for some of the night so that he could breathe. His physician saw him this morning I and by exam he appeared to be in some decompensated heart failure he was sent to the emergency room where he was evaluated and admitted. He has been given some intravenous furosemide and was placed in the IMU for further evaluation and management. He is known to me for many years and has a history of coronary disease and a prior history of atrial flutter as well. His history of coronary disease dates back to 1995 at between that year at 8:08 p.m. he underwent a couple of mentions percutaneously. He did well after that. He presented in 2018 with an episode of tachycardia and symptomatic atrial flutter. When he was tachycardic he had some ischemic changes sounding chest pain so he was brought back to the cardiac catheterization lab for re-evaluation at that time. He was found to have a total occlusion of his distal right coronary artery at that time the circumflex was occluded after the 1st marginal branch and a diagonal branch of the LAD was also occluded. His ejection fraction at that time was reduced to 35% and he has evidence of infero posterior hypokinesia. He has done well with medical therapy of this and was actually just seen in my office recently and reported no symptoms of any kind. His chest x-ray demonstrates enlargement of the cardiac silhouette and some engorgement of the vasculature. No kevin pulmonary edema. His biomarkers are negative for acute coronary syndrome he is not reporting any recent ischemic type chest pain. His medical regimen at home consists of am amiodarone, aspirin, amlodipine, carvedilol at a low dose and lisinopril. Review of Systems Constitutional: Constitutional: Reports no additional constitutional complaints Eyes: Eyes: Reports no additional eye complaints ENT: Reports system reviewed and no additional complaints, except as documented Cardiovascular: Cardiovascular: Reports as per
[2022-08-07 16:56] LABS: Glucose Point of Care 111 mg/dl (65-105)
[2022-08-07 20:59] LABS: Glucose Point of Care 131 mg/dl (65-105)
[2022-08-07] MEDS: carvediloL 3.125 MG TABLET PO (22:00)
[2022-08-07] MEDS: HEPARIN SODIUM 5,000 UNITS/ML VIAL 5000 UNITS SUB-Q (22:01)
--- NOTE | 2022-08-07 23:01 | PC.NURSE ---
VS charted for 08/07/22 at 2107 was charted in error. Information entered was for a different patient. CCT unable to undo these vital signs.
[2022-08-08] VITALS (16 sets, daily range): BP systolic 122–149; BP diastolic 54–108; PULSE 51–109; RESP 16–20; TEMP 36.3–36.7; O2SAT 92–100
[2022-08-08 04:51] LABS: Alanine Aminotransferase 23 U/L (6-50); Albumin Level 4.2 g/dL (3.5-5.1); Alkaline Phosphatase 65 U/L (38-126); Anion Gap 15 mmol/L (8-16); Aspartate Amino Transferase 30 U/L (17-59); Bilirubin,Total 0.6 mg/dL (0.2-1.3); Blood Urea Nitrogen 36 mg/dL (9-20); Carbon Dioxide 25 mmol/L (22-30); Chloride 100 mmol/L (98-107); Estimated CRCL calculation 38 ml/min; Estimated Glomerular Filt Rate 48; Glucose 125 mg/dL (65-110); Potassium 4.3 mmol/L (3.4-5.0); Sodium 140 mmol/L (137-145)
--- NOTE | 2022-08-08 07:16 | PM.PNCARD ---
Progress Note: A&P Assessment and Plan (1) Acute decompensated heart failure: Code(s): I50.9 - Heart failure, unspecified Status: Acute Plan 82-year-old man with decompensated heart failure with reduced ejection fraction. Coming into a state of euvolemic compensation. Will begin Entresto this evening after lisinopril has been discontinued. Will continue IV furosemide for another day. Of advanced carvedilol to 6.25 mg q.12 hours. Alvino Avina MD [facility] Subjective Date/time seen: Date of service: 08/08/22 07:16 Interval history: Follow-up visit in this 82-year-old man with: Ischemic cardiomyopathy and decompensated congestive heart failure. He feels better this morning os was able to lie down flat last night without dyspnea. Noticeable improvement in lower extremity edema compared with admission. Discussed echocardiographic findings with the patient Exam Const: General: comfortable and no acute distress Other: Pleasant elderly man sitting in his bedside chair no distress HENMT: Mouth: Yes moist mucous membranes Eyes: Sclera: sclerae normal Neck: Neck: supple and no JVD Resp: Effort & Inspection: normal respiratory effort Auscultation: clear to auscultation bilaterally Cardio: Rate: regular rate Rhythm: regular rhythm GI: GI Palp: Yes Soft to palpation Auscultation: normal bowel sounds Skin: General skin exam: normal color Neuro: Other: Alert and oriented x3 Extrem: Other: 1+ bipedal edema (improved) Objective Data Vital Signs Vital Signs: Vital Signs - 24 hr 08/07/22 09:10 08/07/22 09:51 08/07/22 11:05 Temperature 37.0 C Pulse Rate 75 68 61 Respiratory Rate 16 15 14 Blood Pressure 159/78 H Pulse Oximetry 100 97 98 Oxygen Delivery Room Air 08/07/22 11:15 08/07/22 11:16 08/07/22 11:48 Temperature Pulse Rate 57 L 56 L 62 Respiratory Rate 29 H 29 H 19 Blood Pressure 144/65 H Pulse Oximetry 96 97 96 Oxygen Delivery 08/07/22 12:00 08/07/22 12:01 08/07/22 12:15 Temperature Pulse Rate 54 L 58 L 65 Respiratory Rate 20 21 H 27 H Blood Pressure 135/61 Pulse Oximetry 95 94 91 Oxygen Delivery 08/07/22 12:17 08/07/22 13:26 08/07/22 14:00 Temperature 36.4 C L Pulse Rate 62 59 L Respiratory Rate 17 16 Blood Pressure 140/65 147/66 H Pulse Oximetry 95 96 Oxygen Delivery Room Air 08/07/22 16:00 08/07/22 16:00 08/07/22 20:00 Temperature 36.2 C L 36.8 C Pulse Rate 61 62 69 Respiratory Rate 16 16 Blood Pressure 93/33 L 137/59 L Pulse Oximetry 93 95 Oxygen Delivery 08/07/22 20:00 08/07/22 21:07 08/07/22 20:00 Temperature 37.2 C 36.8 C Pulse Rate 69 84 69 Respiratory Rate 16 20 16 Blood Pressure 103/34 L 137/59 L Pulse Oximetry 95 88 L 95 Oxygen Delivery Room Air 08/07/22 22:00 08/08/22 00:00 08/08/22 00:00 Temperature 36.7 C Pulse Rate 71 56 L 56 L Respiratory Rate 18 18 Blood Pressure 122/54 L Pulse Oximetry 95 95 Oxygen Delivery CPAP 08/07/22 20:00 08/07/22 22:00 08/08/22 00:00 Temperature Pulse Rate 69 69 58 L Respiratory Rate Blood Pressure Pulse Oximetry Oxygen Delivery 08/08/22 01:44 08/08/22 04:00 08/08/22 04:00 Temperature 36.3 C L Pulse Rate 62 60 60 Respiratory Rate 20 20 Blood Pressure 127/59 L Pulse Oximetry 99 99 Oxygen Delivery CPAP 08/08/22 04:00 08/08/22 06:00 Temperature Pulse Rate 62 57 L Respiratory Rate Blood Pressure Pulse Oximetry Oxygen Delivery Intake/Output Intake/Output: Intake & Output 08/05/22 08/06/22 08/07/22 08/08/22 23:59 23:59 23:59 23:59 Intake Total 360 600 Output Total 1440 400 Balance -1080 200 Meds/Results Medications: Active Medications Generic Name Dose Route Start Last Admin Trade Name Cindy PRN Reason Stop Dose Admin Amiodarone HCl 200 mg 08/08/22 08:00 Amiodarone Hcl 200 Mg Tablet PO DAILY@0800 [facility] Aspirin 81 mg 08/08/22 09:00 Aspirin 8
--- NOTE | 2022-08-08 07:33 | PM.IMPN ---
Progress Note: A&P Assessment and Plan (1) Type 2 diabetes mellitus with mild nonproliferative diabetic retinopathy without macular edema, bilateral: Onset Date: 05/19/22 Code(s): E11.3293 - Type 2 diabetes mellitus with mild nonproliferative diabetic retinopathy without macular edema, bilateral Status: Acute Assessment and Plan: a1c 7.7 continue jardiance, accuchecks, ssi (2) Cardiomyopathy, ischemic: Code(s): I25.5 - Ischemic cardiomyopathy Status: Acute Assessment and Plan: Appreciate cardiology consultation, continue amiodarone, continue Coreg at increased dose (went from 3.125-6.25 mg per Cardiology recommendations), continue IV diuresis with Lasix 40 mg daily today, start Entresto tonight after 36 hour washout from lisinopril, continue Aldactone as well (3) History of coronary artery bypass graft: Code(s): Z95.1 - Presence of aortocoronary bypass graft Status: Acute Assessment and Plan: Appreciate cardiology consultation (4) Paroxysmal atrial fibrillation: Code(s): I48.0 - Paroxysmal atrial fibrillation Status: Acute Assessment and Plan: Rate controlled (5) Edema: Code(s): R60.9 - Edema, unspecified Status: Acute Assessment and Plan: Continue IV diuresis x1 more day, anticipate discharge tomorrow on oral diuresis (6) Acute systolic (congestive) heart failure: Code(s): I50.21 - Acute systolic (congestive) heart failure Status: Acute Assessment and Plan: Improving with diuresis, near euvolemic today Plan DVT prophylaxis with heparin GI prophylaxis not indicated Code status full code Subjective Date/time seen: 08/08/22 07:33 Interval history: No overnight events noted. No chest pain or shortness of breath. No nausea, vomiting or diarrhea. No fevers or chills. Patient states his orthopnea is now resolved. Review of Systems Review of Systems: 12 point review of systems was assessed and was negative except as noted in the HPI Exam Narrative: General: No acute distress, alert and oriented per baseline HEENT: Atraumatic, normocephalic, mucous membranes moist CV: Regular rate and rhythm, S1, S2 Lungs: Clear to auscultation bilaterally, no rales or crackles noted, no wheezes, good air entry Abdomen: Soft, nontender, nondistended Extremities: Normal to inspection, trace pitting edema bilateral lower extremity Skin: No rashes noted, no lesions or wounds seen Psych: Euthymic, normal affect Objective Data Vital Signs Vital Signs: Vital Signs - 24 hr 08/07/22 09:10 08/07/22 09:51 08/07/22 11:05 Temperature 98.6 F Pulse Rate 75 68 61 Respiratory Rate 16 15 14 Blood Pressure 159/78 H Pulse Oximetry 100 97 98 Oxygen Delivery Room Air 08/07/22 11:15 08/07/22 11:16 08/07/22 11:48 Temperature Pulse Rate 57 L 56 L 62 Respiratory Rate 29 H 29 H 19 Blood Pressure 144/65 H Pulse Oximetry 96 97 96 Oxygen Delivery 08/07/22 12:00 08/07/22 12:01 08/07/22 12:15 Temperature Pulse Rate 54 L 58 L 65 Respiratory Rate 20 21 H 27 H Blood Pressure 135/61 Pulse Oximetry 95 94 91 Oxygen Delivery 08/07/22 12:17 08/07/22 13:26 08/07/22 14:00 Temperature 97.5 F L Pulse Rate 62 59 L Respiratory Rate 17 16 Blood Pressure 140/65 147/66 H Pulse Oximetry 95 96 Oxygen Delivery Room Air 08/07/22 16:00 08/07/22 16:00 08/07/22 20:00 Temperature 97.1 F L 98.3 F Pulse Rate 61 62 69 Respiratory Rate 16 16 Blood Pressure 93/33 L 137/59 L Pulse Oximetry 93 95 Oxygen Delivery 08/07/22 20:00 08/07/22 21:07 08/07/22 20:00 Temperature 99.0 F 98.3 F Pulse Rate 69 84 69 Respiratory Rate 16 20 16 Blood Pressure 103/34 L 137/59 L Pulse Oximetry 95 88 L 95 Oxygen Delivery Room Air 08/07/22 22:00 08/08/22 00:00 08/08/22 00:00 Temperature 98.0 F Pulse Rate 71 56 L 56 L Respiratory Rate 18 18 Blood Pressure 122/54 L Pulse Oximetry
[2022-08-08 08:12] LABS: Glucose Point of Care 142 mg/dl (65-105)
[2022-08-08] MEDS: carvediloL 6.25 MG TABLET PO ×2 (11:36→21:02)
[2022-08-08] MEDS: SPIRONOLACTONE 25 MG TABLET PO (11:37)
[2022-08-08] MEDS: AMIODARONE HCL 200 MG TABLET PO (11:38)
[2022-08-08] MEDS: ASPIRIN 81 MG ENTERIC TABLET PO (11:38)
[2022-08-08] MEDS: EMPAGLIFLOZIN 10 MG TABLET PO (11:38)
[2022-08-08] MEDS: HEPARIN SODIUM 5,000 UNITS/ML VIAL 5000 UNITS SUB-Q ×2 (11:39→21:01)
[2022-08-08] MEDS: FUROSEMIDE INJ 40 MG/4 ML VIAL IV PUSH (11:39)
[2022-08-08 11:59] LABS: Glucose Point of Care 178 mg/dl (65-105)
[2022-08-08 16:21] LABS: Glucose Point of Care 389 mg/dl (65-105)
[2022-08-08 20:03] LABS: Glucose Point of Care 279 mg/dl (65-105)
[2022-08-08] MEDS: SACUBITRIL/VALSARTAN 24-26 MG TABLET 1 TAB PO (21:03)
[2022-08-08] MEDS: SIMVASTATIN 20 MG TABLET 40 MG PO (21:04)
[2022-08-09] VITALS: BP 133/62; PULSE 51; PULSE 59; RESP 16; TEMP 36.5; O2SAT 96
[2022-08-09 02:00] VITALS: PULSE 60
[2022-08-09 04:00] VITALS: BP 119/51; PULSE 54; PULSE 55; RESP 18; TEMP 36.3; O2SAT 96
[2022-08-09 06:50] LABS: Basophils Percent Auto 0.6 % (0.2-1.2); Eosinophils Absolute Auto 0.1 K/mm3 (0-0.3); Eosinophils Percent Auto 2.7 % (0-4.4); Hematocrit 38.5 % (42.0-52.0); Hemoglobin 12.2 g/dL (14.0-18.0); Immature Granulocyte Absolute 0.01 K/mm3 (0.00-0.031); Immature Granulocyte Percent A 0.3 % (0-0.5); Lymphocytes Absolute Auto 0.77 K/mm3 (0.9-3.2); Lymphocytes Percent Auto 23.3 % (18.3-44.2); Mean Corpuscular HGB Conc 31.7 g/dl (32-36); Mean Corpuscular Hemoglobin 29.9 pg (26-34); Mean Corpuscular Volume 94.4 fl (80-100); Mean Platelet Volume 10.4 fl (7.4-10.4); Monocytes Absolute Auto 0.6 K/mm3 (0.1-0.6); Monocytes Percent Auto 18.5 % (2.6-8.5); Neutrophils Absolute Auto 1.8 K/mm3 (1.3-6.7); Neutrophils Percent Auto 54.6 % (45.5-73.1); Platelet Count Result 176 k/mm3 (150-375); Red Blood Count 4.08 M/mm3 (4.6-6.20); Red Cell Distribution Width 14.6 % (11.5-14.5); White Blood Count 3.3 K/mm3 (4.5-10.0)
[2022-08-09 07:10] LABS: Alanine Aminotransferase 25 U/L (6-50); Albumin Level 4.3 g/dL (3.5-5.1); Alkaline Phosphatase 66 U/L (38-126); Anion Gap 13 mmol/L (8-16); Aspartate Amino Transferase 30 U/L (17-59); Bilirubin,Total 0.7 mg/dL (0.2-1.3); Blood Urea Nitrogen 38 mg/dL (9-20); Calcium 9.1 mg/dL (8.4-10.2); Carbon Dioxide 26 mmol/L (22-30); Chloride 97 mmol/L (98-107); Estimated CRCL calculation 44 ml/min; Estimated Glomerular Filt Rate 58; Glucose 230 mg/dL (65-110); Potassium 4.6 mmol/L (3.4-5.0); Sodium 136 mmol/L (137-145)
[2022-08-09 08:19] LABS: Glucose Point of Care 230 mg/dl (65-105)
[2022-08-09 08:20] VITALS: BP 132/54; PULSE 53; RESP 16; TEMP 36.3; O2SAT 100
--- NOTE | 2022-08-09 08:44 | PM.DS ---
DS: Admitting Diagnosis Discharge Date August 09, 2022 Admitting Diagnosis Shortness of breath DS: Discharge Diagnosis Discharge Diagnosis (1) Type 2 diabetes mellitus with mild nonproliferative diabetic retinopathy without macular edema, bilateral: Onset Date: 05/19/22 Code(s): E11.3293 - Type 2 diabetes mellitus with mild nonproliferative diabetic retinopathy without macular edema, bilateral Status: Acute Assessment and Plan: a1c 7.7 continue howie nagel, ssi (2) Cardiomyopathy, ischemic: Code(s): I25.5 - Ischemic cardiomyopathy Status: Acute Assessment and Plan: Appreciate cardiology consultation, continue amiodarone, continue Coreg at increased dose (went from 3.125-6.25 mg per Cardiology recommendations), continue IV diuresis with Lasix 40 mg daily today, start Entresto tonight after 36 hour washout from lisinopril, continue Aldactone as well (3) History of coronary artery bypass graft: Code(s): Z95.1 - Presence of aortocoronary bypass graft Status: Acute Assessment and Plan: Appreciate cardiology consultation (4) Paroxysmal atrial fibrillation: Code(s): I48.0 - Paroxysmal atrial fibrillation Status: Acute Assessment and Plan: Rate controlled (5) Edema: Code(s): R60.9 - Edema, unspecified Status: Acute Assessment and Plan: Continue IV diuresis x1 more day, anticipate discharge tomorrow on oral diuresis (6) Acute systolic (congestive) heart failure: Code(s): I50.21 - Acute systolic (congestive) heart failure Status: Acute Assessment and Plan: Improving with diuresis, near euvolemic today Plan DVT prophylaxis with heparin GI prophylaxis not indicated Code status full code DS: Summary Hospital Course Hospital Course: 82-year-old male past medical history significant for coronary disease, AFib and heart failures presenting with shortness of breath, swelling of the lower extremities dyspnea on exertion and orthopnea. He states the symptoms have been progressively worsening over the last 2-3 days. Cardiology was consulted and thought the patient was in acute heart failure and recommended IV diuresis. Aldactone was added to his medical regimen as well as Entresto. Therefore, lisinopril was stopped for a 36 hour washout period. Coreg was also increased from 3.125 mg to 6.25 mg. Norvasc was discontinued so we could more effectively use his blood pressure for directed medical therapy for heart failure. The patient tolerated these medication changes well and was discharged in the euvolemic condition on oral diuresis and the above changed heart failure medication regimen. Please see above and the med reconciliation for details. Time Spent with Patient Time attestation: Total time spent providing and/or coordinating discharge services: Exam Narrative: General: No acute distress, alert and oriented per baseline HEENT: Atraumatic, normocephalic, mucous membranes moist CV: Regular rate and rhythm, S1, S2 Lungs: Clear to auscultation bilaterally, no rales or crackles noted, no wheezes, good air entry Abdomen: Soft, nontender, nondistended Extremities: Normal to inspection, trace pitting edema bilateral lower extremity Skin: No rashes noted, no lesions or wounds seen Psych: Euthymic, normal affect DS: Data Data Completed and Pending Labs on day of discharge: Labs from last 24 hours 08/09/22 08/09/22 08/09/22 08:11 06:10 06:10 WBC 3.3 L RBC 4.08 L Hgb 12.2 L Hct 38.5 L MCV 94.4 MCH 29.9 MCHC 31.7 L RDW 14.6 H Plt Count 176 MPV 10.4 Immature Gran % (Auto) 0.3 Neut % (Auto) 54.6 Lymph % (Auto) 23.3 Sharkey % (Auto) 18.5 H Eos % (Auto) 2.7 Baso % (Auto) 0.6 Lymph # (Auto) 0.77 L Sharkey # (Auto) 0.6 Eos # (Auto) 0.1 Baso # (Auto) 0.0 Abs Immat Gran (auto) 0.01 Absolute Neuts (auto) 1.8 Absolute Nucleated RBC
[2022-08-09] MEDS: SPIRONOLACTONE 25 MG TABLET PO (09:17)
[2022-08-09] MEDS: FUROSEMIDE INJ 40 MG/4 ML VIAL IV PUSH (09:17)
[2022-08-09] MEDS: SACUBITRIL/VALSARTAN 24-26 MG TABLET 1 TAB PO (09:17)
[2022-08-09] MEDS: HEPARIN SODIUM 5,000 UNITS/ML VIAL 5000 UNITS SUB-Q (09:17)
[2022-08-09] MEDS: EMPAGLIFLOZIN 10 MG TABLET PO (09:18)
[2022-08-09] MEDS: ASPIRIN 81 MG ENTERIC TABLET PO (09:18)
[2022-08-09] MEDS: carvediloL 6.25 MG TABLET PO (09:18)
[2022-08-09] MEDS: AMIODARONE HCL 200 MG TABLET PO (09:18)
== END 2022-08-09 10:23 | disposition home or self-care (01) ==
LOC: ANHED 09:45 → ANHIMU 12:46 → ANH3MEDSUR 08-09 08:26 → ANHIMU 08-14 13:04
PROVIDERS: Internal Medicine; Physician Assistant; Admitting Provider Internal Medicine; Emergency Provider Emergency Medicine; PCP Nurse Practitioner Family; Visit Provider Student in an Organized Health Care Education/Training Program
DX: E11.3293 Type 2 diabetes mellitus with mild nonproliferative diabetic retinopathy without macular edema, bilateral (principal); I25.5 Ischemic cardiomyopathy; I25.10 Atherosclerotic heart disease of native coronary artery without angina pectoris; Z95.1 Presence of aortocoronary bypass graft; I48.0 Paroxysmal atrial fibrillation; R60.0 Localized edema; R06.09 Other forms of dyspnea; I13.0 Hypertensive heart and chronic kidney disease with heart failure and stage 1 through stage 4 chronic kidney disease, or unspecified chronic kidney disease; I50.21 Acute systolic (congestive) heart failure; E11.22 Type 2 diabetes mellitus with diabetic chronic kidney disease; N18.30 Chronic kidney disease, stage 3 unspecified; D63.1 Anemia in chronic kidney disease; N40.0 Benign prostatic hyperplasia without lower urinary tract symptoms; I34.0 Nonrheumatic mitral (valve) insufficiency; J90 Pleural effusion, not elsewhere classified; R94.31 Abnormal electrocardiogram [ECG] [EKG]; G47.33 Obstructive sleep apnea (adult) (pediatric); Z99.89 Dependence on other enabling machines and devices; Z20.822 Contact with and (suspected) exposure to COVID-19; E78.5 Hyperlipidemia, unspecified; I25.2 Old myocardial infarction; E55.9 Vitamin D deficiency, unspecified; Z87.891 Personal history of nicotine dependence; Z79.82 Long term (current) use of aspirin; Z79.84 Long term (current) use of oral hypoglycemic drugs; Z79.899 Other long term (current) drug therapy; Z83.3 Family history of diabetes mellitus; Z82.49 Family history of ischemic heart disease and other diseases of the circulatory system; Z83.6 Family history of other diseases of the respiratory system
CPT/HCPCS: 36415; 71046; 80053; 82948; 83880; 84484; 85025; 85610; 85730; 87636; 93005; 93306; 93970; 96372; 96374; 96376; 99285; A9270; G0378; J1644; J1940

== ENCOUNTER 2023-01-30 09:29 | Inpatient (IN) | payer MEDICARE, BC, SELFPAY ==
[2023-01-30] VITALS (42 sets, daily range): BP systolic 86–150; BP diastolic 45–76; PULSE 51–66; RESP 14–24; TEMP 36.4–36.6; O2SAT 96–100; BMI 27.6
--- NOTE | ~2023-01-30 | XR_ITS ---
EXAMINATION: XR chest 2V DATE: 01/30/2023 10:08 INDICATION: Shortness of breath. TECHNIQUE: Frontal and lateral views of the chest were obtained. COMPARISON: Chest 2 views 08/07/2022 FINDINGS: There are small pleural effusions. No pneumonia or pneumothorax. The heart size is normal. IMPRESSION: 1. Stable small pleural effusions. Reviewed, dictated and finalized at location A.
--- NOTE | 2023-01-30 09:30 | ECG_ITS ---
Measurements Intervals Ida Rate: 61 P: -32 NV: 318 QRS: 127 QRSD: 161 T: -33 QT: 500 QTc: 505 Interpretive Statements SINUS RHYTHM WITH FIRST DEGREE AV BLOCK RIGHT BUNDLE BRANCH BLOCK MINIMAL Q WAVES- INFERIOR LEADS BASELINE ARTIFACT- I, II, AVR ABNORMAL ECG COMPARED TO ECG 08/07/2022 09:13:17 NO SIGNIFICANT CHANGES Electronically Signed On 01-30-2023 15:55:56 CDT by Jaycob Abel D.O.
--- NOTE | 2023-01-30 09:48 | ED.SOB ---
HPI - SOB/Dyspnea General Chief Complaint: Shortness of Breath/Dyspnea <Estela Terry PA-C - Last Filed: 01/30/23 16:49> Stated Complaint: Ankles swelling, SOB <Estela Terry PA-C - Last Filed: 01/30/23 16:49> Time Seen by Provider: 01/30/23 09:37 <Estela Terry PA-C - Last Filed: 01/30/23 16:49> History of Present Illness HPI Narrative: 82-year-old male with a history of CHF, CAD status post stenting in the , T2DM on metformin/jardiance, here for evaluation of shortness of breath. Patient states that he started feeling unwell yesterday, was short of breath with exertion, but was particularly worsened when he laid down to go to bed. Reports difficulty sleeping due to shortness of breath. Two-pillow orthopnea. His ankles began to swell 3 days ago as well. states that he is typically minimally symptomatic from his heart failure. He follows with Dr. Avina. He denies any chest pain, cough, nausea, vomiting. Echo from 08/18 revealed LVEF of 40%. Most recent cath in 2018. He is compliant with his GDMT but states he has not had his lasix for several weeks, unclear why, believes it was not refilled. <Estela Terry PA-C - Last Filed: 01/30/23 16:49> Related Data Home Medications: Home Medications Medication Instructions Recorded Confirmed amiodarone 200 mg tablet 200 mg PO QAM 07/20/19 01/19/23 aspirin 81 mg tablet,delayed 81 mg PO DAILY 07/20/19 01/19/23 release cholecalciferol (vitamin D3) 125 125 mcg PO DAILY 03/16/22 01/19/23 mcg (5,000 unit) capsule mecobalamin (vitamin B12) 1,000 1,000 mcg PO DAILY 03/16/22 01/19/23 mcg chewable tablet metformin 500 mg tablet,extended 500 mg PO QHS 01/19/23 01/19/23 release 24 hr simvastatin 20 mg tablet (Zocor) 20 mg PO DAILY 01/19/23 01/19/23 spironolactone 25 mg tablet 25 mg PO DAILY 01/19/23 01/19/23 (Aldactone) <Estela Terry PA-C - Last Filed: 01/30/23 16:49> Allergies/Adverse Reactions: Allergies Allergy/AdvReac Type Severity Reaction Status Date / Time No Known Allergies Allergy Verified 01/30/23 09:30 <Estela Terry PA-C - Last Filed: 01/30/23 16:49> Review of Systems Review of Systems: Gen: Denies fevers or chills Eyes: Denies eye pain or visual change ENT: Denies congestion Respiratory: Reports shortness of breath CV: Denies chest pain or palpitations GI: Denies abdominal pain nausea, emesis or diarrhea : denies burning, urgency, frequency or hematuria Musculoskeletal: Reports leg swelling. Denies back pain or muscle pain Neuro: Denies numbness, tingling, weakness or focal weakness Skin: Denies rash Except as documented, all other systems reviewed and negative <Estela Terry PA-C - Last Filed: 01/30/23 16:49> [facility] Past Medical History Medical History: Medical History Acute decompensated heart failure Acute systolic (congestive) heart failure Afib Allergic rhinitis Anemia Atrial tachycardia Atypical atrial flutter B12 deficiency BPH loc w urin obs/LUTS CAD in [place] artery Cardiomyopathy, ischemic Cellulitis of finger of left hand Cerumen impaction Cervicalgia CKD (chronic kidney disease) stage 3, GFR 30-59 ml/min Congestive heart failure Decreased white blood cell count, unspecified H/O: HTN (hypertension) Heart disease History of [place] (myocardial infarction) History of peptic ulcer disease Hypercalcemia Hyperlipidemia with target low density lipoprotein (LDL) cholesterol less than 100 mg/dL Hypertension Insomnia Neoplasm of skin Normal colonoscopy JOSE ALBERTO on CPAP Osteoarthritis Primary insomnia Rhinitis Serum potassium elevated Tinnitus Type 2 diabetes mellitus Type 2 diabetes mellitus with mild nonproliferative diabetic retinopathy without macular edema, bilateral (05/19/22) Dilated eye exam 05/19/2022 with mild nonproliferative diabetic retinopathy with no macular
[2023-01-30 09:53] LABS: Basophils Percent Auto 0.5 % (0.2-1.2); Eosinophils Absolute Auto 0.1 K/mm3 (0-0.3); Eosinophils Percent Auto 1.3 % (0-4.4); Hematocrit 33.4 % (42.0-52.0); Hemoglobin 10.8 g/dL (14.0-18.0); Immature Granulocyte Absolute 0.02 K/mm3 (0.00-0.031); Immature Granulocyte Percent A 0.3 % (0-0.5); Lymphocytes Percent Auto 13.4 % (18.3-44.2); Mean Corpuscular HGB Conc 32.3 g/dl (32-36); Mean Corpuscular Hemoglobin 32.9 pg (26-34); Mean Corpuscular Volume 101.8 fl (80-100); Mean Platelet Volume 10.6 fl (7.4-10.4); Monocytes Absolute Auto 0.6 K/mm3 (0.1-0.6); Monocytes Percent Auto 10.4 % (2.6-8.5); Neutrophils Absolute Auto 4.4 K/mm3 (1.3-6.7); Neutrophils Percent Auto 74.1 % (45.5-73.1); Platelet Count Result 152 k/mm3 (150-375); Red Blood Count 3.28 M/mm3 (4.6-6.20)
[2023-01-30 10:02] LABS: Alanine Aminotransferase 24 U/L (6-50); Albumin Level 4.3 g/dL (3.5-5.1); Alkaline Phosphatase 78 U/L (38-126); Anion Gap 13 mmol/L (8-16); Aspartate Amino Transferase 20 U/L (17-59); Bilirubin,Total 0.5 mg/dL (0.2-1.3); Blood Urea Nitrogen 43 mg/dL (9-20); Calcium 8.8 mg/dL (8.4-10.2); Carbon Dioxide 20 mmol/L (22-30); Chloride 101 mmol/L (98-107); Estimated CRCL calculation 34 ml/min; Estimated Glomerular Filt Rate 41; Glucose 353 mg/dL (65-110); Sodium 134 mmol/L (137-145)
[2023-01-30 10:03] LABS: INR 1.1; Prothrombin Time 14.7 Seconds (11.1-14.7)
[2023-01-30 10:04] LABS: Partial Thromboplastin Time 29.3 SECONDS (22.3-36.8)
[2023-01-30 10:17] LABS: NT Pro B Type Natriuretic Pept 12400 pg/mL (19.9-100); Troponin I 0.124 ng/mL (0.000-0.034)
[2023-01-30 10:36] LABS: Magnesium 2.1 mg/dL (1.6-2.3)
[2023-01-30 11:09] LABS: Glucose Point of Care 334 mg/dl (65-105)
[2023-01-30 11:21] LABS: Appearance Urine Clear (Clear); Bacteria Urine None Seen /hpf; Bilirubin Urine Negative (Negative); Blood Urine Negative (Negative); Color Urine Yellow (Yellow); Glucose Urine UA 3+ mg/dL (Negative); Ketones Urine Negative (Negative); Leukocyte Esterase Ur 1+ LEU/UL (Negative); Nitrate Urine Negative (Negative); Non Pathogenic Casts 0-2; Protein Urine Negative (Negative); RBC Urine 0-2 /hpf (0-2); Specific Grav Ur 1.029 (1.001-1.035); Squamous Epithelial Cell Urine Occasional /hpf (Few); Urobilinogen Urine 0.2 mg/dL (<2.0); WBC Urine 21-50 /hpf
[2023-01-30 11:22] LABS: Add Urine Microscopic? YES
[2023-01-30] MEDS: FUROSEMIDE INJ 40 MG/4 ML VIAL IV PUSH (11:33)
[2023-01-30] MEDS: INSULIN HUMAN REGULAR (*BKC) 100 UNITS/ML 10 UNITS SUB-Q (11:35)
[2023-01-30 12:02] LABS: Influenza A QL RT-PCR Negative (Negative); Influenza B QL RT-PCR Negative (Negative); SARS-CoV-2 RNA PCR Negative (Negative)
[2023-01-30 12:57] LABS: Glucose Point of Care 284 mg/dl (65-105)
[2023-01-30 13:42] LABS: Troponin I 0.127 ng/mL (0.000-0.034)
--- NOTE | 2023-01-30 14:36 | PC.NURSE ---
food tray ordered for patient
[2023-01-30 15:53] LABS: Troponin I 0.117 ng/mL (0.000-0.034)
--- NOTE | 2023-01-30 19:47 | PM.IMHP ---
H&P: HPI History of Present Illness Date/Time: 01/30/23 19:00 Chief Complaint: Shortness of breath and ankle swelling. Narrative: This is a very pleasant 82-year-old male with heart failure with reduced ejection fraction (35 to 40% in July 2022), coronary artery disease, chronic kidney disease, and diabetes who presented to the emergency department for evaluation of shortness of breath and ankle swelling. He reports a gradual onset of lower leg edema, dyspnea on lesser and lesser exertion, and orthopnea over the past 4 days or so. Today he was more short of breath and called his doctor's office but never received a phone call back and so he decided come in for evaluation. He has not had fever, chills, sweats, cold or flu symptoms, chest or pleuritic pain, palpitations, cough, nausea, vomiting, or sweats. Blood pressure in the ED was as low as 86/45 though he was really asymptomatic with that. [place] [address] and a troponin of 0.124. Chest x-ray showed sinus rhythm with first-degree AV block, right bundle branch block, and minimal Q-waves in the inferior leads which is similar to prior tracings. Chest x-ray shows stable small pleural effusions. He was given a dose of IV furosemide 40 mg x 1 he has had good urine output with that and his blood pressures have improved. He is being admitted overnight for further diuresis and Cardiology consultation. He states compliance with his home medications. He does not think he has gained any weight. He is not diligent about monitoring his sodium intake but he does not add excess salt to food. Review of Systems Review of Systems: Twelve systems were reviewed and are negative except for as per HPI. [facility] Past Medical History Medical History (Updated 01/31/23 @ 23:45 by Nathalie Mckinney PA-C) Afib Allergic rhinitis Anemia B12 deficiency BPH loc w urin obs/LUTS CAD in [place] artery Cardiomyopathy, ischemic CKD (chronic kidney disease) stage 3, GFR 30-59 ml/min Congestive heart failure Heart disease History of [place] (myocardial infarction) History of peptic ulcer disease Hyperlipidemia with target low density lipoprotein (LDL) cholesterol less than 100 mg/dL Hypertension Insomnia JOSE ALBERTO on CPAP Osteoarthritis Type 2 diabetes mellitus 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 Exam 11/25/2022 with mild nonproliferative retinopathy. Vitamin D deficiency Surgical History Surgical History History of bladder surgery History of cardiac cath History of coronary artery bypass graft History of tonsillectomy Family History Family History Mother Diabetes mellitus Cerebrovascular accident Hypertension Heart disease Sibling Diabetes mellitus Lupus (systemic lupus erythematosus) Cerebrovascular accident Cancer Hypertension Heart disease Grandparent Diabetes mellitus Heart disease Other Aneurysm Breast cancer COPD (chronic obstructive pulmonary disease) Social History Social History (Updated 01/31/23 @ 23:46 by Nathalie Mckinney PA-C) Social History: Surrogate medical decision maker: Cristiane Bahena, spouse. Code status: Full code. Smoking packs per day: 1 Smoking cigarettes per day: 20.0 Years smoked: 10 Smoking pack-years: 10.00 Smoking status: Former smoker Tobacco type: cigarettes Second hand tobacco smoke exposure: Yes Smoking end date: 09/27/66 Alcohol intake: current Drinks per week: 1 Alcohol use details: Rarely Substance use: never Substance use type: does not use Lack of Transportation: YES Lack of Food: Never True Current Housing: I Do Not Have Housing Concerned About Future Housing: No Difficulty Paying Gas/Electri
--- NOTE | 2023-01-30 20:45 | PC.NURSE ---
This patient, Reggie Bahena, was admitted to IMU Room 206-01 on 01/30/23 at 2040. Patient/family oriented to hospital policies and general routines including ID bracelet, bed and alarms, visiting hours, pain management, procedures, bathroom and other care routines, personal items, smoking policy, room service/diet, and visiting hours. Information on how to activate the Rapid Response Team has been discussed. Patient/Family are encouraged to report perceived risks to care and to ask questions if they do not understand what they are told or what they should do.
[2023-01-31] VITALS (15 sets, daily range): BP systolic 96–134; BP diastolic 50–84; PULSE 55–95; RESP 16–20; TEMP 36–36.7; O2SAT 94–100
[2023-01-31 03:48] LABS: Anion Gap 10 mmol/L (8-16); Blood Urea Nitrogen 43 mg/dL (9-20); Calcium 8.9 mg/dL (8.4-10.2); Carbon Dioxide 22 mmol/L (22-30); Chloride 106 mmol/L (98-107); Estimated CRCL calculation 38 ml/min; Estimated Glomerular Filt Rate 48; Glucose 125 mg/dL (65-110); Potassium 3.9 mmol/L (3.4-5.0); Sodium 138 mmol/L (137-145)
[2023-01-31 04:41] LABS: Hemoglobin A1C 9.8 % (<5.7)
[2023-01-31] MEDS: glyBURIDE 5 MG TABLET PO ×2 (08:40→16:39)
[2023-01-31] MEDS: amLODIPine BESYLATE 5 MG TABLET PO (08:40)
[2023-01-31] MEDS: CHOLECALCIFEROL 1,000 UNITS TABLET 5000 UNITS PO (08:40)
[2023-01-31] MEDS: SIMVASTATIN 20 MG TABLET 40 MG PO (08:40)
[2023-01-31] MEDS: AMIODARONE HCL 200 MG TABLET PO (08:40)
[2023-01-31] MEDS: carvediloL 6.25 MG TABLET PO ×2 (08:40→20:50)
[2023-01-31] MEDS: SACUBITRIL/VALSARTAN 24-26 MG TABLET 1 TAB PO ×2 (08:41→20:50)
[2023-01-31] MEDS: CYANOCOBALAMIN 1,000 MCG TABLET 1000 MCG PO (08:41)
[2023-01-31] MEDS: ASPIRIN 81 MG ENTERIC TABLET PO (08:41)
[2023-01-31] MEDS: ENOXAPARIN 40 MG/0.4 ML SYRINGE SUB-Q (08:41)
[2023-01-31 10:56] LABS: Glucose Point of Care 157 mg/dl (65-105)
[2023-01-31] MEDS: SPIRONOLACTONE 25 MG TABLET PO (11:00)
[2023-01-31] MEDS: EMPAGLIFLOZIN 10 MG TABLET PO (11:00)
--- NOTE | 2023-01-31 11:08 | PM.IMPN ---
Progress Note: A&P Assessment and Plan (1) Acute on chronic systolic congestive heart failure: Code(s): I50.23 - Acute on chronic systolic (congestive) heart failure Status: Acute Assessment and Plan: Precipitating etiology is not entirely clear though may be dietary indiscretion as he does not monitor his sodium intake closely. He states compliance with his home medications. He was previously on furosemide but has not been on that for several weeks for unclear reasons. He continues to take spironolactone at home. He will be cautiously diuresed with close monitoring of volume status, renal function, and electrolytes. (2) Elevated troponin: Code(s): R77.8 - Other specified abnormalities of plasma proteins Status: Acute Assessment and Plan: He is not having any chest pain EKG is unchanged when compared to prior tracings. Likely his troponins are elevated in the setting of CHF exacerbation. Trend troponins to peak. Cardiology consulted by the ED provider. (3) Type 2 diabetes mellitus: Qualifiers: Diabetes mellitus termination clerk insulin use: without termination clerk use Diabetes mellitus complication status: without complication Qualified Code(s): E11.9 - Type 2 diabetes mellitus without complications Code(s): E11.9 - Type 2 diabetes mellitus without complications Status: Acute Assessment and Plan: Random glucose today was over 300 which he states is unusual for him. Continue glyburide and empagliflozin. Initiate sliding scale insulin, Accu-Cheks, and hypoglycemic protocol. Check A1c. (4) Chronic kidney disease, stage 3a: Code(s): N18.31 - Chronic kidney disease, stage 3a Status: Acute Assessment and Plan: Essentially stable on review of previous labs. Subjective Date/time seen: 01/31/23 11:08 Interval history: No new complaints Exam Narrative: General: A well-developed, nontoxic-appearing gentleman sitting up in bed in no distress. Weight: 89.8 kg. BMI: 27.6. HEENT: Normocephalic, atraumatic. PERRL, EOMI. Sclera anicteric. Oral mucosa moist. Oropharynx clear. Neck: Supple. Respiratory: Respirations are nonlabored and he is speaking in full sentences. Lung sounds are a bit diminished at the bases with faint crackles. Cardiovascular: Bradycardic with normal S1-S2. Gastrointestinal: Abdomen is soft, nontender, and nondistended with positive bowel sounds. Skin: Warm and dry. No rash or lesions on limited exam. Extremities: No cyanosis or clubbing. 2+ jeanne ankle edema bilaterally extending up to mid manuel. Neurological: Alert. Cranial nerves 2-12 are grossly intact. No gross focal deficits to casual conversation. Psychiatric: Pleasant and cooperative with normal mood and affect. Judgment and insight intact. Objective Data Vital Signs Vital Signs: Vital Signs - 24 hr 01/30/23 11:16 01/30/23 11:31 01/30/23 11:46 Temperature Pulse Rate 52 L 53 L 53 L Respiratory Rate 18 19 18 Blood Pressure 96/52 L 96/52 L 100/53 L Pulse Oximetry 99 100 98 Oxygen Delivery 01/30/23 12:01 01/30/23 12:16 01/30/23 12:17 Temperature Pulse Rate 54 L 60 60 Respiratory Rate 19 21 H 16 Blood Pressure 99/55 L 104/61 Pulse Oximetry 96 Oxygen Delivery 01/30/23 12:31 01/30/23 12:45 01/30/23 12:45 Temperature Pulse Rate 52 L 56 L 55 L Respiratory Rate 20 19 17 Blood Pressure 96/55 L 95/53 L Pulse Oximetry 99 100 100 Oxygen Delivery 01/30/23 13:41 01/30/23 13:45 01/30/23 13:46 Temperature Pulse Rate 53 L 51 L 51 L Respiratory Rate 22 H 24 H 17 Blood Pressure 107/59 L 110/59 L Pulse Oximetry 99 100 100 Oxygen Delivery 01/30/23 14:00 01/30/23 14:16 01/30/23 14:31 Temperature Pulse Rate 53 L 53 L 53 L Respiratory Rate 21 H 22 H 19 Blood Pressure 98/55 L 118/51 L 101/57 L Pulse Oximetry 100 100 99 Oxygen Delivery 01/30/23 14:45 01/30/23 15:00 01/30/23 15:15 Temperature Pulse
--- NOTE | 2023-01-31 11:16 | PM.CNCAR ---
Assessment and Plan Assessment and plan (1) Acute on chronic systolic congestive heart failure: Code(s): I50.23 - Acute on chronic systolic (congestive) heart failure Status: Acute Plan Assessment: Acute on chronic systolic heart failure Ischemic cardiomyopathy HTN controlled CKD stage 3 Plan: lasix 40 mg IV BID Entersto, Jardiance, and coreg Cont amodipine F/U renal function History of Present Illness History of Present Illness Consult date/time: 01/31/23 11:16 Reason For Visit: CHF exacerbation Narrative: Patient presented with bilateral ankle swelling associated with SOB worse with mild activity and lying flat. He had Hx of CHF and last admission was in Jul 2022. He has Hx of ischemic cardiomyopathy with known BR[employer] NOVELTY in diagonal, distal RCA and LCX. Review of Systems Review of Systems: 12 points review of system negative except for stated above [facility] Past Medical History Medical History Acute decompensated heart failure Acute systolic (congestive) heart failure Afib Allergic rhinitis Anemia Atrial tachycardia Atypical atrial flutter B12 deficiency BPH loc w urin obs/LUTS CAD in [place] artery Cardiomyopathy, ischemic Cellulitis of finger of left hand Cerumen impaction Cervicalgia CKD (chronic kidney disease) stage 3, GFR 30-59 ml/min Congestive heart failure Decreased white blood cell count, unspecified H/O: HTN (hypertension) Heart disease History of [place] (myocardial infarction) History of peptic ulcer disease Hypercalcemia Hyperlipidemia with target low density lipoprotein (LDL) cholesterol less than 100 mg/dL Hypertension Insomnia Neoplasm of skin Normal colonoscopy JOSE ALBERTO on CPAP Osteoarthritis Primary insomnia Rhinitis Serum potassium elevated Tinnitus Type 2 diabetes mellitus Type 2 diabetes mellitus 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 Exam 11/25/2022 with mild nonproliferative retinopathy. Vitamin D deficiency Surgical History Surgical History History of bladder surgery History of cardiac cath History of coronary artery bypass graft History of tonsillectomy Family History Family History Mother Diabetes mellitus Cerebrovascular accident Hypertension Heart disease Sibling Diabetes mellitus Lupus (systemic lupus erythematosus) Cerebrovascular accident Cancer Hypertension Heart disease Grandparent Diabetes mellitus Heart disease Other Aneurysm Breast cancer COPD (chronic obstructive pulmonary disease) Social History Social History Smoking packs per day: 1 Smoking cigarettes per day: 20.0 Years smoked: 10 Smoking pack-years: 10.00 Smoking status: Former smoker Tobacco type: cigarettes Second hand tobacco smoke exposure: Yes Smoking end date: 09/27/66 Alcohol intake: current Drinks per week: 1 Alcohol use details: Rarely Substance use: never Substance use type: does not use Lack of Transportation: YES Lack of Food: Never True Current Housing: I Do Not Have Housing Concerned About Future Housing: No Difficulty Paying Gas/Electric Bills: No Difficulty Paying for Meds: No Currently Unemployed: No Education: High School Diploma/GED Difficulty w/ Childcare or Family Care: No Living arrangements: with family Additional living arrangements comments: Occupation/Education: retired Gender identity (if verbalized by the patient): Male Spiritual care concerns: No Agree to blood products: Yes Meds Home Medications and Allergies Home Medications Medication Instructions Recorded Confirme
[2023-01-31] MEDS: INSULIN ASPART (*BKC) 100 UNITS/ML SUB-Q ×3 (11:39→20:51)
[2023-01-31 12:13] LABS: Glucose Point of Care 220 mg/dl (65-105)
[2023-01-31 16:58] LABS: Glucose Point of Care 221 mg/dl (65-105)
[2023-01-31 20:25] LABS: Glucose Point of Care 236 mg/dl (65-105)
[2023-02-01] VITALS (9 sets, daily range): BP systolic 103; BP diastolic 55–59; PULSE 56–63; RESP 16–18; TEMP 36–36.6; O2SAT 98–99
[2023-02-01 08:16] LABS: Glucose Point of Care 188 mg/dl (65-105)
[2023-02-01] MEDS: CHOLECALCIFEROL 1,000 UNITS TABLET 5000 UNITS PO (08:28)
[2023-02-01] MEDS: ASPIRIN 81 MG ENTERIC TABLET PO (08:29)
[2023-02-01] MEDS: carvediloL 6.25 MG TABLET PO (08:29)
[2023-02-01] MEDS: SACUBITRIL/VALSARTAN 24-26 MG TABLET 1 TAB PO (08:29)
[2023-02-01] MEDS: amLODIPine BESYLATE 5 MG TABLET PO (08:29)
[2023-02-01] MEDS: glyBURIDE 5 MG TABLET PO (08:30)
[2023-02-01] MEDS: SPIRONOLACTONE 25 MG TABLET PO (08:30)
[2023-02-01] MEDS: EMPAGLIFLOZIN 10 MG TABLET PO (08:30)
[2023-02-01] MEDS: SIMVASTATIN 20 MG TABLET 40 MG PO (08:30)
[2023-02-01] MEDS: AMIODARONE HCL 200 MG TABLET PO (08:30)
[2023-02-01] MEDS: CYANOCOBALAMIN 1,000 MCG TABLET 1000 MCG PO (08:31)
[2023-02-01] MEDS: ENOXAPARIN 40 MG/0.4 ML SYRINGE SUB-Q (08:31)
[2023-02-01 08:55] LABS: Anion Gap 16 mmol/L (8-16); Blood Urea Nitrogen 37 mg/dL (9-20); Calcium 8.9 mg/dL (8.4-10.2); Carbon Dioxide 18 mmol/L (22-30); Chloride 104 mmol/L (98-107); Estimated CRCL calculation 41 ml/min; Estimated Glomerular Filt Rate 53; Glucose 218 mg/dL (65-110); Potassium 4.8 mmol/L (3.4-5.0); Sodium 138 mmol/L (137-145)
--- NOTE | 2023-02-01 10:25 | PM.DS ---
DS: Admitting Diagnosis Discharge Date February 02, 2020 Admitting Diagnosis CHF exacerbation DS: Discharge Diagnosis Discharge Diagnosis (1) Acute on chronic systolic congestive heart failure: Code(s): I50.23 - Acute on chronic systolic (congestive) heart failure Status: Acute Assessment and Plan: Precipitating etiology is not entirely clear though may be dietary indiscretion as he does not monitor his sodium intake closely. He states compliance with his home medications. He was previously on furosemide but has not been on that for several weeks for unclear reasons. He continues to take spironolactone at home. He will be cautiously diuresed with close monitoring of volume status, renal function, and electrolytes. (2) Elevated troponin: Code(s): R77.8 - Other specified abnormalities of plasma proteins Status: Acute Assessment and Plan: He is not having any chest pain EKG is unchanged when compared to prior tracings. Likely his troponins are elevated in the setting of CHF exacerbation. Trend troponins to peak. Cardiology consulted by the ED provider. (3) Type 2 diabetes mellitus: Qualifiers: Diabetes mellitus fci insulin use: without fci use Diabetes mellitus complication status: without complication Qualified Code(s): E11.9 - Type 2 diabetes mellitus without complications Code(s): E11.9 - Type 2 diabetes mellitus without complications Status: Acute Assessment and Plan: Random glucose today was over 300 which he states is unusual for him. Continue glyburide and empagliflozin. Initiate sliding scale insulin, Accu-Cheks, and hypoglycemic protocol. Check A1c. (4) Chronic kidney disease, stage 3a: Code(s): N18.31 - Chronic kidney disease, stage 3a Status: Acute Assessment and Plan: Essentially stable on review of previous labs. DS: Summary Hospital Course Hospital Course: Admitted for CHF exacerbation, meds adjusted. Breathing much better wants to go home. Follow-up cardiology Time Spent with Patient Time attestation: Total time spent providing and/or coordinating discharge services: Exam Narrative: General: A well-developed, nontoxic-appearing gentleman sitting up in bed in no distress. Weight: 89.8 kg. BMI: 27.6. HEENT: Normocephalic, atraumatic. PERRL, EOMI. Sclera anicteric. Oral mucosa moist. Oropharynx clear. Neck: Supple. Respiratory: Respirations are nonlabored and he is speaking in full sentences. Lung sounds are a bit diminished at the bases with faint crackles. Cardiovascular: Bradycardic with normal S1-S2. Gastrointestinal: Abdomen is soft, nontender, and nondistended with positive bowel sounds. Skin: Warm and dry. No rash or lesions on limited exam. Extremities: No cyanosis or clubbing. 2+ jeanne ankle edema bilaterally extending up to mid manuel. Neurological: Alert. Cranial nerves 2-12 are grossly intact. No gross focal deficits to casual conversation. Psychiatric: Pleasant and cooperative with normal mood and affect. Judgment and insight intact. DS: Data Data Completed and Pending Labs on day of discharge: Labs from last 24 hours 02/01/23 02/01/23 01/31/23 08:36 07:40 19:43 Sodium 138 Potassium 4.8 Chloride 104 Carbon Dioxide 18 L Anion Gap 16 BUN 37 H Creatinine 1.30 Estim Creat Clear Calc 41 Estimated GFR 53 L Glucose 218 H POC Capillary Glucose 188 H 236 H Calcium 8.9 01/31/23 01/31/23 01/31/23 16:37 10:58 07:55 Sodium Potassium Chloride Carbon Dioxide Anion Gap BUN Creatinine Estim Creat Clear Calc Estimated GFR Glucose POC Capillary Glucose 221 H 220 H 157 H Calcium Discharge Plan Discharge Attending physician on discharge: Alvino Langley Consulting providers: Mandeep Giordano; Estela Terry Discharging Clinician: Alvino Langley Patient Dispositio
== END 2023-02-01 11:07 | disposition home or self-care (01) | DRG 291 ==
LOC: ANHED 18:11 → ANHIMU 19:03
PROVIDERS: Emergency Medicine; Internal Medicine; Physician Assistant; Admitting Provider Chiropractor; Emergency Provider Physician Assistant; PCP Nurse Practitioner Family; Visit Provider Chiropractor
DX: I13.0 Hypertensive heart and chronic kidney disease with heart failure and stage 1 through stage 4 chronic kidney disease, or unspecified chronic kidney disease (principal); I50.23 Acute on chronic systolic (congestive) heart failure; N18.30 Chronic kidney disease, stage 3 unspecified; I25.5 Ischemic cardiomyopathy; Z20.822 Contact with and (suspected) exposure to COVID-19; I25.10 Atherosclerotic heart disease of native coronary artery without angina pectoris; E11.22 Type 2 diabetes mellitus with diabetic chronic kidney disease; N18.9 Chronic kidney disease, unspecified; D64.9 Anemia, unspecified; I48.91 Unspecified atrial fibrillation; N40.0 Benign prostatic hyperplasia without lower urinary tract symptoms; E78.5 Hyperlipidemia, unspecified; M19.90 Unspecified osteoarthritis, unspecified site; E11.3293 Type 2 diabetes mellitus with mild nonproliferative diabetic retinopathy without macular edema, bilateral; Z95.5 Presence of coronary angioplasty implant and graft; I25.2 Old myocardial infarction; Z87.11 Personal history of peptic ulcer disease; Z95.1 Presence of aortocoronary bypass graft; Z87.891 Personal history of nicotine dependence; Z79.84 Long term (current) use of oral hypoglycemic drugs; Z79.82 Long term (current) use of aspirin
CPT/HCPCS: 36415; 71046; 80048; 80053; 81001; 82948; 83036; 83735; 83880; 84484; 85025; 85610; 85730; 87086; 87088; 87636; 93005; 96372; 99285; A9270; G0378; J1650; J1815; J1940

== ENCOUNTER 2023-02-08 11:52 | Emergency (ER) | payer MEDICARE, BC, SELFPAY ==
[2023-02-08 11:55] VITALS: BP 99/44; PULSE 64; RESP 16; TEMP 36.3; O2SAT 100
--- NOTE | 2023-02-08 13:21 | ED.MALEGU ---
HPI - Male Genitourinary General Chief complaint: Urogenital-Male Stated complaint: urinary retention Time Seen by Provider: 02/08/23 12:02 History of Present Illness HPI Narrative: Patient is an 82-year-old male who presents to the ER with urinary retention. Reports that he has not urinated since last night. He was recently hospitalized for CHF and was placed on a couple diuretics. He does see Dr. Gilliland with the urology group. Denies dysuria. No additional new medications. Denies fevers or chills or sweats. No lower abdominal pain. Adams catheter placed with prompt removal of 1 L urine. Related Data Home Medications Medication Instructions Recorded Confirmed amiodarone 200 mg tablet 200 mg PO QAM 07/20/19 02/08/23 aspirin 81 mg tablet,delayed 81 mg PO DAILY 07/20/19 02/08/23 release cholecalciferol (vitamin D3) 125 125 mcg PO DAILY 03/16/22 02/08/23 mcg (5,000 unit) capsule mecobalamin (vitamin B12) 1,000 1,000 mcg PO DAILY 03/16/22 02/08/23 mcg chewable tablet metformin 500 mg tablet,extended 500 mg PO QHS 01/19/23 02/08/23 release 24 hr simvastatin 20 mg tablet (Zocor) 40 mg PO DAILY 01/19/23 02/08/23 spironolactone 25 mg tablet 25 mg PO DAILY 01/19/23 02/08/23 (Aldactone) Allergies Allergy/AdvReac Type Severity Reaction Status Date / Time No Known Allergies Allergy Verified 01/30/23 09:30 Review of Systems Review of Systems: All systems reviewed & are unremarkable except as noted in HPI and below Constitutional: Constitutional: Denies chills, Denies fatigue and Denies fever(s) Gastrointestinal: Gastrointestinal: Denies abdominal pain, Denies nausea and Denies vomiting Genitourinary: Genitourinary: Reports oliguria, Denies dysuria, Denies testicular pain and Denies urinary frequency PMFSH Past Medical History Medical History (Updated 02/08/23 @ 14:04 by Daniel Abdullahi MD) Acute urinary retention Afib Allergic rhinitis Anemia B12 deficiency BPH loc w urin obs/LUTS CAD in [place] artery Cardiomyopathy, ischemic CKD (chronic kidney disease) stage 3, GFR 30-59 ml/min Congestive heart failure Heart disease History of [place] (myocardial infarction) History of peptic ulcer disease Hyperlipidemia with target low density lipoprotein (LDL) cholesterol less than 100 mg/dL Hypertension Insomnia JOSE ALBERTO on CPAP Osteoarthritis Type 2 diabetes mellitus 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 Exam 11/25/2022 with mild nonproliferative retinopathy. Vitamin D deficiency Surgical History Surgical History History of bladder surgery History of cardiac cath History of coronary artery bypass graft History of tonsillectomy Family History Family History Mother Diabetes mellitus Cerebrovascular accident Hypertension Heart disease Sibling Diabetes mellitus Lupus (systemic lupus erythematosus) Cerebrovascular accident Cancer Hypertension Heart disease Grandparent Diabetes mellitus Heart disease Other Aneurysm Breast cancer COPD (chronic obstructive pulmonary disease) Social History Social History (Updated 01/31/23 @ 23:46 by Nathalie Mckinney PA-C) Social History: Surrogate medical decision maker: Cristiane Josef, spouse. Code status: Full code. Smoking packs per day: 1 Smoking cigarettes per day: 20.0 Years smoked: 10 Smoking pack-years: 10.00 Smoking status: Former smoker Tobacco type: cigarettes Second hand tobacco smoke exposure: Yes Smoking end date: 09/27/66 Alcohol intake: current Drinks per week: 1 Alcohol use details: Rarely Substance use: never Substance use type: does not use Lack of Transportation: YES Lack of Food: Never True Current Housing:
[2023-02-08 13:32] LABS: Appearance Urine Clear (Clear); Bacteria Urine None Seen /hpf; Bilirubin Urine Negative (Negative); Blood Urine Negative (Negative); Color Urine Yellow (Yellow); Glucose Urine UA 2+ mg/dL (Negative); Ketones Urine Negative (Negative); Leukocyte Esterase Ur Trace LEU/UL (Negative); Nitrate Urine Negative (Negative); Non Pathogenic Casts 0-2; Protein Urine Negative (Negative); RBC Urine 0-2 /hpf (0-2); Specific Grav Ur 1.015 (1.001-1.035); Squamous Epithelial Cell Urine None seen /hpf (Few); Urobilinogen Urine 0.2 mg/dL (<2.0); WBC Urine 0-5 /hpf
[2023-02-08 13:33] LABS: Add Urine Microscopic? YES
== END 2023-02-08 14:24 | disposition home or self-care (01) ==
PROVIDERS: Emergency Provider Emergency Medicine; PCP Nurse Practitioner Family
DX: R33.9 Retention of urine, unspecified (principal); I12.9 Hypertensive chronic kidney disease with stage 1 through stage 4 chronic kidney disease, or unspecified chronic kidney disease; N18.30 Chronic kidney disease, stage 3 unspecified; I48.91 Unspecified atrial fibrillation; D64.9 Anemia, unspecified; I25.10 Atherosclerotic heart disease of native coronary artery without angina pectoris; M19.90 Unspecified osteoarthritis, unspecified site; E11.9 Type 2 diabetes mellitus without complications; Z79.84 Long term (current) use of oral hypoglycemic drugs
CPT/HCPCS: 51702; 81001; 99283

== ENCOUNTER 2023-02-23 14:26 | Emergency (ER) | payer MEDICARE, BC, SELFPAY ==
--- NOTE | 2023-02-23 14:36 | ED.GENADULT ---
HPI - General Adult General Chief complaint: Extremity Problem,Nontraumatic Stated complaint: sob,bilateral ankle swelling Time Seen by Provider: 02/23/23 14:38 Source: patient, RN notes reviewed and old records reviewed Mode of arrival: ambulatory Limitations: no limitations History of Present Illness HPI narrative: 82-year-old male presents to the [facility] with 2 days of increasing ankle swelling. States last night he tried to lay down became very short of breath. Is wearing compression stockings Does have a Adams catheter due to urinary retention, placed the 08 of February. Patient denies any chest pain. Patient states that he has been taking his medications as prescribed Has a history of congestive heart failure, hypertension, diabetes, urinary retention MD complaint: Shortness of breath, bilateral leg swelling Onset (ago): day(s) (2) Related Data Home Medications Medication Instructions Recorded Confirmed amiodarone 200 mg tablet 200 mg PO QAM 07/20/19 02/23/23 aspirin 81 mg tablet,delayed 81 mg PO DAILY 07/20/19 02/23/23 release cholecalciferol (vitamin D3) 125 125 mcg PO DAILY 03/16/22 02/23/23 mcg (5,000 unit) capsule mecobalamin (vitamin B12) 1,000 1,000 mcg PO DAILY 03/16/22 02/23/23 mcg chewable tablet metformin 500 mg tablet,extended 500 mg PO QHS 01/19/23 02/23/23 release 24 hr simvastatin 20 mg tablet (Zocor) 40 mg PO DAILY 01/19/23 02/23/23 spironolactone 25 mg tablet 25 mg PO DAILY 01/19/23 02/23/23 (Aldactone) Allergies Allergy/AdvReac Type Severity Reaction Status Date / Time No Known Allergies Allergy Verified 02/23/23 14:32 Review of Systems Review of Systems: All systems reviewed & are unremarkable except as noted in HPI and below Constitutional: Constitutional: Reports no additional constitutional complaints Eyes: Eyes: Reports no additional eye complaints ENT: Reports system reviewed and no additional complaints, except as documented Cardiovascular: Cardiovascular: Reports as per HPI, Denies chest pain, Reports pedal edema, Reports dyspnea, Reports dyspnea on exertion and Reports orthopnea Respiratory: Respiratory: Reports as per HPI, Denies chest congestion, Denies cough and Reports dyspnea Gastrointestinal: Gastrointestinal: Reports no additional gastrointestinal complaints, Denies abdominal pain, Denies nausea and Denies vomiting Musculoskeletal: Musculoskeletal: Reports no additional musculoskeletal complaints Integumentary/Breasts: Skin/Breast: Reports system reviewed and no additional complaints, except as docu Neurologic: Reports system reviewed and no additional complaints, except as documented Psychiatric: Psychiatric: Reports no additional psychiatric complaints Allergic/Immunologic: Allergic/Immunologic: Reports no additional allergic/immunologic complaints PMFSH Past Medical History Medical History Acute urinary retention Afib Allergic rhinitis Anemia B12 deficiency BPH loc w urin obs/LUTS CAD in [place] artery Cardiomyopathy, ischemic CKD (chronic kidney disease) stage 3, GFR 30-59 ml/min Congestive heart failure Heart disease History of [place] (myocardial infarction) History of peptic ulcer disease Hyperlipidemia with target low density lipoprotein (LDL) cholesterol less than 100 mg/dL Hypertension Insomnia JOSE ALBERTO on CPAP Osteoarthritis Type 2 diabetes mellitus 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 Exam 11/25/2022 with mild nonproliferative retinopathy. Vitamin D deficiency Surgical History Surgical History History of bladder surgery History of cardiac cath History of coronary artery bypass graft History of tonsillectomy Family History Family History (Reviewed 02/23/23 @ 14:49 by Marlene Puentes
[2023-02-23 14:38] VITALS: BP 114/49; PULSE 65; RESP 22; TEMP 36.7; O2SAT 100
== END 2023-02-23 14:50 | disposition short-term general hospital (02) ==
LOC: EXPTROY 14:29
PROVIDERS: Emergency Provider Nurse Practitioner; PCP Nurse Practitioner Family
DX: R06.02 Shortness of breath (principal); R60.0 Localized edema; Z87.891 Personal history of nicotine dependence; I48.91 Unspecified atrial fibrillation; I13.0 Hypertensive heart and chronic kidney disease with heart failure and stage 1 through stage 4 chronic kidney disease, or unspecified chronic kidney disease; E11.22 Type 2 diabetes mellitus with diabetic chronic kidney disease; N18.30 Chronic kidney disease, stage 3 unspecified; I50.9 Heart failure, unspecified; Z79.84 Long term (current) use of oral hypoglycemic drugs; E53.8 Deficiency of other specified B group vitamins; E55.9 Vitamin D deficiency, unspecified; I25.10 Atherosclerotic heart disease of native coronary artery without angina pectoris; I25.2 Old myocardial infarction; E78.5 Hyperlipidemia, unspecified; G47.33 Obstructive sleep apnea (adult) (pediatric); M19.90 Unspecified osteoarthritis, unspecified site; E11.3293 Type 2 diabetes mellitus with mild nonproliferative diabetic retinopathy without macular edema, bilateral; Z95.1 Presence of aortocoronary bypass graft; Z79.82 Long term (current) use of aspirin
CPT/HCPCS: 99211; 99212; G0463

== ENCOUNTER 2023-02-23 15:06 | Inpatient (IN) | payer MEDICARE, BC, SELFPAY ==
[2023-02-23] VITALS (13 sets, daily range): BP systolic 109–128; BP diastolic 53–77; PULSE 61–69; RESP 16–21; TEMP 36.2–36.3; O2SAT 92–99; BMI 24.5
--- NOTE | ~2023-02-23 | XR_ITS ---
EXAMINATION: XR chest 2V DATE: 02/23/2023 17:08 INDICATION: Shortness of breath TECHNIQUE: PA and lateral views of the chest were obtained. COMPARISON: Chest radiograph dated 01/30/23 FINDINGS: Decrease in size of a very small right pleural effusion with punctate the posterior sulcus. Prior lef t pleural effusion has resolved. No other airspace opacities, pulmonary edema or pneumothorax. Heart size is normal with left paracardial fat pad extending towards the costophrenic angle. IMPRESSION: 1. Decreased now very small right pleural effusion and resolution of prior left pleural effusion. Reviewed, dictated and finalized at location A.
--- NOTE | ~2023-02-23 | US_ITS ---
EXAMINATION: US venous doppler [facility] DATE: 02/24/2023 08:08 INDICATION: Lower limb edema. TECHNIQUE: Grayscale ultrasound images without and with compression and Doppler ultrasound images of the bilateral lower extremity veins were obtained. COMPARISON: Ultrasound 08/07/2022 FINDINGS: The visualized portions of right common femoral vein, profunda (deep) femoral vein, femoral vein, pop liteal vein, peroneal veins, posterior tibial veins, and greater saphenous vein outflow are patent. The visualized portions of left common femoral vein, profunda femoral vein, femoral vein, popliteal v ein, peroneal veins, posterior tibial veins, and greater saphenous vein outflow are patent. IMPRESSION: 1. No deep venous thrombosis. Reviewed, dictated and finalized at location A.
--- NOTE | 2023-02-23 15:08 | ECG_ITS ---
Measurements Intervals [place] Rate: 62 P: -59 LA: 301 QRS: 97 QRSD: 165 T: -33 QT: 489 QTc: 498 Interpretive Statements SINUS RHYTHM WITH MARKED FIRST DEGREE AV BLOCK RIGHT BUNDLE BRANCH BLOCK MINIMAL Q WAVES- INFERIOR LEADS BASELINE ARTIFACT- I, II, AVR ABNORMAL ECG COMPARED TO ECG 01/30/2023 09:42:21 NO SIGNIFICANT CHANGES Electronically Signed On 02-23-2023 15:41:24 CDT by Jaycob Abel D.O.
[2023-02-23 15:31] LABS: Basophils Percent Auto 0.5 % (0.2-1.2); Eosinophils Absolute Auto 0.1 K/mm3 (0-0.3); Eosinophils Percent Auto 1.5 % (0-4.4); Hematocrit 34.7 % (42.0-52.0); Hemoglobin 11.1 g/dL (14.0-18.0); Immature Granulocyte Absolute 0.04 K/mm3 (0.00-0.031); Immature Granulocyte Percent A 0.7 % (0-0.5); Lymphocytes Absolute Auto 0.72 K/mm3 (0.9-3.2); Lymphocytes Percent Auto 12.2 % (18.3-44.2); Mean Corpuscular Hemoglobin 32.3 pg (26-34); Mean Corpuscular Volume 100.9 fl (80-100); Mean Platelet Volume 10.6 fl (7.4-10.4); Monocytes Absolute Auto 0.6 K/mm3 (0.1-0.6); Monocytes Percent Auto 9.7 % (2.6-8.5); Neutrophils Absolute Auto 4.4 K/mm3 (1.3-6.7); Neutrophils Percent Auto 75.4 % (45.5-73.1); Platelet Count Result 165 k/mm3 (150-375); Red Blood Count 3.44 M/mm3 (4.6-6.20); Red Cell Distribution Width 13.9 % (11.5-14.5); White Blood Count 5.9 K/mm3 (4.5-10.0)
[2023-02-23 15:39] LABS: Alanine Aminotransferase 22 U/L (6-50); Albumin Level 4.1 g/dL (3.5-5.1); Alkaline Phosphatase 81 U/L (38-126); Anion Gap 11 mmol/L (8-16); Aspartate Amino Transferase 20 U/L (17-59); Bilirubin,Total 0.4 mg/dL (0.2-1.3); Blood Urea Nitrogen 58 mg/dL (9-20); Calcium 8.8 mg/dL (8.4-10.2); Carbon Dioxide 23 mmol/L (22-30); Chloride 99 mmol/L (98-107); Estimated Glomerular Filt Rate 41; Glucose 348 mg/dL (65-110); Potassium 4.8 mmol/L (3.4-5.0); Sodium 133 mmol/L (137-145)
[2023-02-23 15:50] LABS: NT Pro B Type Natriuretic Pept 14000 pg/mL (19.9-100); Troponin I < 0.012 ng/mL (0.000-0.034)
[2023-02-23 15:51] LABS: INR 1.1; Prothrombin Time 14.2 Seconds (11.1-14.7)
[2023-02-23 15:52] LABS: Partial Thromboplastin Time 28.9 SECONDS (22.3-36.8)
--- NOTE | 2023-02-23 18:00 | ED.SOB ---
HPI - SOB/Dyspnea General Chief Complaint: Shortness of Breath/Dyspnea <Vania Tellez PA-C - Last Filed: 02/23/23 22:07> Stated Complaint: CONGESTIVE HEART FAILURE , SENT BY URGENT CARE <Vania Tellez PA-C - Last Filed: 02/23/23 22:07> Time Seen by Provider: 02/23/23 17:12 <Vania Tellez PA-C - Last Filed: 02/23/23 22:07> History of Present Illness HPI Narrative: 82-year-old male with a history of CKD, s/p CABG, CHF, T2DM reports for evaluation of bilateral ankle swelling x2 to 3 days and shortness of breath that developed last night. Patient reports shortness of breath is worse when laying flat and improved with sitting up. He states he has been taking all of his medications as prescribed and wearing compression stockings the past few days. He denies chest pain, coughing, fever, hemoptysis, nausea, vomiting, diarrhea, abdominal pain. Patient was admitted in the beginning of January for diuresis and elevated troponin. States at that time the hospitalist team discontinued multiple medications and started on new medications. He states the meds were working for short period of time until his swelling and shortness of breath returned a couple of days ago. Pt follows with Dr. Avina (cardiology). Last echo on 08/07/22 showed the following: Summary ? 1. Complete two-dimensional, color flow and Doppler transthoracic echocardiogram is performed. ? 2. Left ventricular systolic function is moderately reduced, estimated at 35-40%. ? 3. The posterior segment is akinetic. ? 4. The inferior segment is severely hypodynamic. ? 5. Left atrial chamber dimension is moderately enlarged. ? 6. There is mild mitral valve regurgitation. <Vania Tellez PA-C - Last Filed: 02/23/23 22:07> Related Data Home Medications: Home Medications Medication Instructions Recorded Confirmed amiodarone 200 mg tablet 200 mg PO QAM 07/20/19 02/24/23 aspirin 81 mg tablet,delayed 81 mg PO DAILY 07/20/19 02/24/23 release mecobalamin (vitamin B12) 1,000 1,000 mcg PO DAILY 03/16/22 02/24/23 mcg chewable tablet metformin 500 mg tablet,extended 500 mg PO QHS 01/19/23 02/24/23 release 24 hr simvastatin 20 mg tablet (Zocor) 40 mg PO DAILY 01/19/23 02/24/23 spironolactone 25 mg tablet 25 mg PO DAILY 01/19/23 02/24/23 (Aldactone) <Vania Tellez PA-C - Last Filed: 02/23/23 22:07> Allergies/Adverse Reactions: Allergies Allergy/AdvReac Type Severity Reaction Status Date / Time No Known Allergies Allergy Verified 02/23/23 14:32 <Vania Tellez PA-C - Last Filed: 02/23/23 22:07> Review of Systems Review of Systems: CONSTITUTIONAL: Denies fever, chills EYES: Denies visual changes, redness, or discharge. ENT: Denies rhinorrhea, congestion, sore throat, or otalgia. CARDIOVASCULAR: See HPI RESPIRATORY: Denies cough or dyspnea. GASTROINTESTINAL: Denies abdominal pain, nausea, vomiting, or diarrhea. GENITOURINARY: Denies dysuria or hematuria. SKIN: Denies rash or itching. MUSCULOSKELETAL: Denies back pain, joint pain, or myalgia. NEUROLOGIC: Denies headache, numbness, dizziness, or weakness. PSYCHIATRIC: Denies anxiety or depression. 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 Exam 11/25/2022 with mild nonproliferative reti
[2023-02-23 18:13] LABS: Appearance Urine Clear (Clear); Bacteria Urine None Seen /hpf; Bilirubin Urine Negative (Negative); Blood Urine 2+ (Negative); Color Urine Yellow (Yellow); Glucose Urine UA 3+ mg/dL (Negative); Ketones Urine Negative (Negative); Leukocyte Esterase Ur 2+ LEU/UL (Negative); Nitrate Urine Negative (Negative); Non Pathogenic Casts 0-2; Protein Urine Trace mg/dL (Negative); RBC Urine 21-50 /hpf (0-2); Specific Grav Ur 1.024 (1.001-1.035); Squamous Epithelial Cell Urine None seen /hpf (Few); Urobilinogen Urine 0.2 mg/dL (<2.0); WBC Urine 21-50 /hpf; pH Urine 5.5 (5.0-9.0)
[2023-02-23 18:17] LABS: Add Urine Microscopic? YES
[2023-02-23] MEDS: FUROSEMIDE INJ 40 MG/4 ML VIAL 20 MG IV PUSH (19:15)
--- NOTE | 2023-02-23 21:29 | ADMGEN ---
This patient, Reggie Bahena, was admitted to [facility] Room 321-02. Patient/family oriented to hospital policies and general routines including ID bracelet, bed and alarms, visiting hours, pain management, procedures, bathroom and other care routines, personal items, smoking policy, room service/diet, and visiting hours. Information on how to activate the Rapid Response Team has been discussed. Patient/Family are encouraged to report perceived risks to care and to ask questions if they do not understand what they are told or what they should do.
--- NOTE | 2023-02-23 22:34 | PM.IMHP ---
H&P: HPI History of Present Illness Date/Time: 02/23/23 19:00 Chief Complaint: Shortness of breath and leg swelling. Narrative: This is a very pleasant 82-year-old male with heart failure with reduced ejection fraction (35 to 40% in July 2022), coronary artery disease, chronic kidney disease, and diabetes who presented to the emergency department for evaluation of shortness of breath and leg swelling. The patient is known to myself and the hospitalist service from a recent admission earlier this month for acute on chronic CHF exacerbation after presenting with similar symptoms. He was diuresed and had pretty rapid improvement and was discharged home in a couple of days where he has been doing well. Last week he developed difficulties urinating and he was seen emergency department where he had a Adams catheter inserted. Today he had an appointment with Dr. Gilliland and it sounds as though he may have had urodynamic studies done. The Adams catheter was reinserted as he was apparently not able to void. In any event, the last 2 days he has developed dyspnea on exertion, increasing lower extremity edema, and orthopnea. He denies syncope, near syncope, chest and pleuritic pain, palpitations, paroxysmal nocturnal dyspnea, nausea, vomiting, and sweats. Review of Systems Review of Systems: Twelve systems were reviewed and are negative except for as per HPI. 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 Exam 11/25/2022 with mild nonproliferative retinopathy. Vitamin D deficiency Surgical History Surgical History History of bladder surgery History of cardiac cath History of coronary artery bypass graft History of tonsillectomy Family History Family History Mother Diabetes mellitus Cerebrovascular accident Hypertension Heart disease Sibling Diabetes mellitus Lupus (systemic lupus erythematosus) Cerebrovascular accident Cancer Hypertension Heart disease Grandparent Diabetes mellitus Heart disease Other Aneurysm Breast cancer COPD (chronic obstructive pulmonary disease) Social History Social History Social History: Surrogate medical decision maker: Cristiane Bahena, spouse. Code status: Full code. Smoking packs per day: 1 Smoking cigarettes per day: 20.0 Years smoked: 10 Smoking pack-years: 10.00 Smoking status: Former smoker Tobacco type: cigarettes Second hand tobacco smoke exposure: Yes Smoking end date: 09/27/66 Alcohol intake: never Drinks per week: 1 Alcohol use details: Rarely Substance use: never Substance use type: does not use Lack of Transportation: No Lack of Food: Never True Current Housing: I Have Housing Concerned About Future Housing: Decline to Answer Difficulty Paying Gas/Electric Bills: Decline to Answer Difficulty Paying for Meds: Decline to Answer Currently Unemployed: Decline to Answer Education: Decline to Answer Difficulty w/ Childcare or Family Care: Decline to Answer Living arrangements: with family Additional living arrangements comments: Occupation/Education: retired Spiritual care concerns: No Agree to blood products: Yes M
[2023-02-23 23:52] LABS: Glucose Point of Care 210 mg/dl (65-105)
[2023-02-24] VITALS (9 sets, daily range): BP systolic 106–113; BP diastolic 55–60; PULSE 58–79; RESP 18–20; TEMP 36.1–37.1; O2SAT 95–99
[2023-02-24 06:40] LABS: Anion Gap 9 mmol/L (8-16); Blood Urea Nitrogen 49 mg/dL (9-20); Calcium 8.8 mg/dL (8.4-10.2); Carbon Dioxide 25 mmol/L (22-30); Chloride 100 mmol/L (98-107); Estimated CRCL calculation 36 ml/min; Estimated Glomerular Filt Rate 45; Glucose 206 mg/dL (65-110); Magnesium 2.1 mg/dL (1.6-2.3); Potassium 4.4 mmol/L (3.4-5.0); Sodium 134 mmol/L (137-145)
[2023-02-24] MEDS: INSULIN ASPART (*BKC) 100 UNITS/ML SUB-Q ×4 (08:49→21:25)
[2023-02-24] MEDS: FUROSEMIDE INJ 40 MG/4 ML VIAL 20 MG IV PUSH ×2 (08:50→17:51)
[2023-02-24] MEDS: ENOXAPARIN 40 MG/0.4 ML SYRINGE SUB-Q (08:50)
[2023-02-24 11:24] LABS: Glucose Point of Care 224 mg/dl (65-105)
[2023-02-24 11:32] LABS: Glucose Point of Care 396 mg/dl (65-105)
--- NOTE | 2023-02-24 15:35 | WPDPN ---
Progress Note: A&P Assessment and Plan (1) Shortness of breath: Code(s): R06.02 - Shortness of breath Status: Acute Assessment and Plan: Patient's symptoms are consistent with CHF exacerbation (edema, dyspnea on exertion, orthopnea) and his proBNP is markedly elevated. Chest x-ray however demonstrates improvement compared to prior radiographs taken earlier this month. Given his symptomatology he will be cautiously diuresed with close monitoring of blood pressures, volume status, electrolytes, and renal function. Pulmonary embolism is a consideration but seems less likely by history however given his significant edema lower extremity venous Doppler ultrasounds have been ordered to rule out DVT. 02/24/2023 interval history: 82-year-old male presented with complaint of shortness lower extremity edema patient is being diuresed and his symptoms are improving most likely patient had acute on chronic systolic congestive Heart failure, will continue to diurese the patient, for PT OT evaluate the patient, patient will benefit going to acute rehab. Patient's and son are present in the room gave updates (2) Acute on chronic systolic congestive heart failure: Code(s): I50.23 - Acute on chronic systolic (congestive) heart failure Status: Acute Assessment and Plan: Judicious IV diuresis with furosemide 20 mg IV b.i.d.. Continue carvedilol, Entresto, and Jardiance. (3) Urinary retention: Code(s): R33.9 - Retention of urine, unspecified Status: Acute Assessment and Plan: Patient was seen by Urology today and had his Adams catheter reinserted. (4) Type 2 diabetes mellitus with hyperglycemia: Code(s): E11.65 - Type 2 diabetes mellitus with hyperglycemia Status: Acute Assessment and Plan: Continue glyburide and Jardiance. Initiate sliding scale insulin, Accu-Cheks, and hypoglycemic protocol. (5) Chronic kidney disease: Code(s): N18.9 - Chronic kidney disease, unspecified Status: Acute Assessment and Plan: BUN and creatinine are a bit elevated from baseline, perhaps due to urinary retention as per HPI. He now has a Adams catheter in place. Monitor renal function while diuresing. Trend I/O. Subjective Date/time seen: 02/24/23 15:35 Interval history: Shortness of breath and leg swelling. HPI-Narrative: This is a very pleasant 82-year-old male with heart failure with reduced ejection fraction (35 to 40% in July 2022), coronary artery disease, chronic kidney disease, and diabetes who presented to the emergency department for evaluation of shortness of breath and leg swelling. The patient is known to myself and the hospitalist service from a recent admission earlier this month for acute on chronic CHF exacerbation after presenting with similar symptoms. He was diuresed and had pretty rapid improvement and was discharged home in a couple of days where he has been doing well. Last week he developed difficulties urinating and he was seen emergency department where he had a Adams catheter inserted. Today he had an appointment with Dr. Gilliland and it sounds as though he may have had urodynamic studies done. The Adams catheter was reinserted as he was apparently not able to void. In any event, the last 2 days he has developed dyspnea on exertion, increasing lower extremity edema, and orthopnea. He denies syncope, near syncope, chest and pleuritic pain, palpitations, paroxysmal nocturnal dyspnea, nausea, vomiting, and sweats. 02/24/2023 interval history: 82-year-old male presented with complaint of shortness lower extremity edema patient is being diuresed and his symptoms are improving most likely patient had acute on chronic systolic congestive Heart failure, will continue to diurese the patient, for PT OT evaluate the patient, patient will benefit going to acute rehab. Patient's and son are present in the room gave updates Review of Systems Revie
[2023-02-24 16:37] LABS: Glucose Point of Care 282 mg/dl (65-105)
[2023-02-24 20:29] LABS: Glucose Point of Care 243 mg/dl (65-105)
[2023-02-24] MEDS: MELATONIN 5 MG TABLET PO (21:26)
[2023-02-25] VITALS: PULSE 79
[2023-02-25 04:00] VITALS: PULSE 77
[2023-02-25 06:00] VITALS: BP 102/67; PULSE 69; RESP 18; TEMP 35.9; O2SAT 97
[2023-02-25 06:56] LABS: Hematocrit 33.2 % (42.0-52.0); Hemoglobin 10.7 g/dL (14.0-18.0); Mean Corpuscular HGB Conc 32.2 g/dl (32-36); Mean Corpuscular Hemoglobin 31.5 pg (26-34); Mean Corpuscular Volume 97.6 fl (80-100); Mean Platelet Volume 10.9 fl (7.4-10.4); Platelet Count Result 141 k/mm3 (150-375); Red Cell Distribution Width 13.7 % (11.5-14.5); White Blood Count 6.4 K/mm3 (4.5-10.0)
[2023-02-25 07:07] LABS: Anion Gap 14 mmol/L (8-16); Blood Urea Nitrogen 44 mg/dL (9-20); Calcium 8.9 mg/dL (8.4-10.2); Carbon Dioxide 22 mmol/L (22-30); Chloride 97 mmol/L (98-107); Estimated CRCL calculation 32 ml/min; Estimated Glomerular Filt Rate 39; Glucose 245 mg/dL (65-110); Magnesium 2.2 mg/dL (1.6-2.3); Sodium 133 mmol/L (137-145)
[2023-02-25 08:00] VITALS: PULSE 65
[2023-02-25 08:00] LABS: Glucose Point of Care 261 mg/dl (65-105)
[2023-02-25] MEDS: ENOXAPARIN 40 MG/0.4 ML SYRINGE SUB-Q (08:16)
[2023-02-25] MEDS: INSULIN ASPART (*BKC) 100 UNITS/ML SUB-Q ×2 (08:16→11:59)
[2023-02-25] MEDS: FUROSEMIDE INJ 40 MG/4 ML VIAL 20 MG IV PUSH (08:21)
[2023-02-25 09:16] VITALS: O2SAT 94
[2023-02-25 11:45] LABS: Glucose Point of Care 245 mg/dl (65-105)
[2023-02-25 12:00] VITALS: PULSE 73
--- NOTE | 2023-02-25 12:51 | PM.DS ---
DS: Admitting Diagnosis Discharge Date 02/25/2023 Admitting Diagnosis shortness of breath DS: Discharge Diagnosis Discharge Diagnosis (1) Shortness of breath: Code(s): R06.02 - Shortness of breath Status: Acute (2) Acute on chronic systolic congestive heart failure: Code(s): I50.23 - Acute on chronic systolic (congestive) heart failure Status: Acute (3) Urinary retention: Code(s): R33.9 - Retention of urine, unspecified Status: Acute (4) Type 2 diabetes mellitus with hyperglycemia: Code(s): E11.65 - Type 2 diabetes mellitus with hyperglycemia Status: Acute (5) Chronic kidney disease: Code(s): N18.9 - Chronic kidney disease, unspecified Status: Acute DS: Summary Hospital Course Hospital Course: # shortness of breath Patient's symptoms are consistent with CHF exacerbation (edema, dyspnea on exertion, orthopnea) and his proBNP is markedly elevated.? Chest x-ray however demonstrates improvement compared to prior radiographs taken earlier this month. Given his symptomatology he will be cautiously diuresed with close monitoring of blood pressures, volume status, electrolytes, and renal function. Pulmonary embolism is a consideration but seems less likely by history however given his significant edema lower extremity venous Doppler ultrasounds have been ordered to rule out DVT. venous duplex came back negative. Will increase Lasix to 20 mg b.i.d. at discharge # acute on chronic systolic congestive Heart failure: Judicious IV diuresis with furosemide 20 mg IV b.i.d.. Continue carvedilol, Entresto, and Jardiance. # Urinary retention: Patient was seen by Urology and had his Adams catheter reinserted. # Type 2 diabetes mellitus with hyperglycemia: Continue glyburide and Jardiance. Initiate sliding scale insulin, Accu-Cheks, and hypoglycemic protocol. # Chronic kidney disease: BUN and creatinine are a bit elevated from baseline, perhaps due to urinary retention as per HPI.? He now has a Adams catheter in place. Monitor renal function while diuresing.? Trend I/O. BMP at discharge in 1 week Time Spent with Patient Time attestation: Total time spent providing and/or coordinating discharge services: 35 minutes Exam Narrative: Elderly frail Patient is comfortable, NAD HEENT: eyes are clear and none icteric LUNGS: Bilateral fair air entry with rales and rhonchi HEART: RR S1S2 ABD: Not distended Lower extremities: trace edema in the ankles bilaterally SKIN: nonjaundiced Neuro: grossly intact. DS: Data Data Completed and Pending Labs on day of discharge: Labs from last 24 hours 02/25/23 02/25/23 02/25/23 11:22 07:41 06:31 WBC 6.4 RBC 3.40 L Hgb 10.7 L Hct 33.2 L MCV 97.6 MCH 31.5 MCHC 32.2 RDW 13.7 Plt Count 141 L MPV 10.9 H Sodium 133 L Potassium 4.0 Chloride 97 L Carbon Dioxide 22 Anion Gap 14 BUN 44 H Creatinine 1.70 H Estim Creat Clear Calc 32 Estimated GFR 39 L Glucose 245 H POC Capillary Glucose 245 H 261 H Calcium 8.9 Magnesium 2.2 02/24/23 02/24/23 19:50 16:23 WBC RBC Hgb Hct MCV MCH MCHC RDW Plt Count MPV Sodium Potassium Chloride Carbon Dioxide Anion Gap BUN Creatinine Estim Creat Clear Calc Estimated GFR Glucose POC Capillary Glucose 243 H 282 H Calcium Magnesium Imaging Radiologist's impression: ITS Impressions Chest X-Ray 02/23/23 17:11 IMPRESSION: 1. Decreased now very small right pleural effusion and resolution of prior left pleural effusion. Venous Doppler Study 02/24/23 08:23 IMPRESSION: 1. No deep venous thrombosis. Discharge Plan Discharge Attending physician on discharge: Gentry Haley Discharging Clinician: Gentry Haley Anticipated Discharge Date/Time: 02/25/23 12:45 Patient Disposition: Home, Self-Care Activity: as
--- NOTE | 2023-02-25 13:55 | PC.NURSE ---
Dr. Haley notified that patient does not have enough Furosemide for BID.
== END 2023-02-25 13:55 | disposition home or self-care (01) | DRG 291 ==
LOC: ANHED 17:33 → ANH3MEDSUR 19:36
PROVIDERS: Emergency Medicine; Family Medicine; Physician Assistant; Admitting Provider Internal Medicine; Emergency Provider Physician Assistant; PCP Nurse Practitioner Family; Visit Provider Internal Medicine
DX: I13.0 Hypertensive heart and chronic kidney disease with heart failure and stage 1 through stage 4 chronic kidney disease, or unspecified chronic kidney disease (principal); I50.23 Acute on chronic systolic (congestive) heart failure; E11.22 Type 2 diabetes mellitus with diabetic chronic kidney disease; E11.65 Type 2 diabetes mellitus with hyperglycemia; E11.319 Type 2 diabetes mellitus with unspecified diabetic retinopathy without macular edema; E53.8 Deficiency of other specified B group vitamins; E78.5 Hyperlipidemia, unspecified; E55.9 Vitamin D deficiency, unspecified; G47.33 Obstructive sleep apnea (adult) (pediatric); I48.0 Paroxysmal atrial fibrillation; I25.10 Atherosclerotic heart disease of native coronary artery without angina pectoris; I43 Cardiomyopathy in diseases classified elsewhere; I25.2 Old myocardial infarction; M19.90 Unspecified osteoarthritis, unspecified site; N18.9 Chronic kidney disease, unspecified; N40.1 Benign prostatic hyperplasia with lower urinary tract symptoms; R33.8 Other retention of urine; Z95.1 Presence of aortocoronary bypass graft; Z79.82 Long term (current) use of aspirin; Z79.84 Long term (current) use of oral hypoglycemic drugs; Z99.89 Dependence on other enabling machines and devices; Z87.891 Personal history of nicotine dependence
CPT/HCPCS: 36415; 71046; 80048; 80053; 81001; 82948; 83735; 83880; 84443; 84484; 85025; 85027; 85610; 85730; 87086; 93005; 93970; 96372; 96374; 96376; 99212; 99285; A9270; G0378; G0463; J1650; J1815; J1940

== ENCOUNTER 2023-03-06 13:32 | Emergency (ER) | payer MEDICARE, BC, SELFPAY ==
[2023-03-06 13:27] VITALS: O2SAT 100
--- NOTE | 2023-03-06 13:27 | PC.NURSE ---
Addendum entered by Luca Maurer RN 03/06/23 14:26: En route EMS started a NSS 0.9% bolus, and gave 30mg of amiodarone. No Amiodarone drip started. Original Note: Pt is wheeled into ER by [facility] c/o cardiac arrest. 15 minutes prior to EMS call pt felt 'off' and pt laid down. After 15 minutes had pt, checked on and found him unresponsive, not breathing. It took another 10-15 minutes to get pt off bed and start CPR. Upon arrival is found unresponsive, no pulse, not breathing. EMS started CPR and were able to tube pt. EMS states pt has had multiple rhythm changes. EMS states pt has been in V-fib twice and shocked twice. Pt upon arrival is in PEA. Pt is being bagged through the ET tube with brian device performing CPR. Pt has an extensive cardiac history. En route EMS started an amiodarone drip running into pt's IV. A femoral pulse is attempted to be checked by ultrasound. No pulse found. 1324 last EPI by EMS 1330 epi by RN 18 R hand IO in right manuel 1333 PEA on pulse check. 1333 EPI by RN through IO 1335 Pt is PEA 1335 EPI by RN through IO 1336 CPR stopped with no pulse found.
--- NOTE | 2023-03-06 13:42 | ED.CPR ---
HPI - CPR General Chief Complaint: Cardiac Arrest/CPR Stated Complaint: cardiac arrest Time Seen by Provider: 03/06/23 13:35 Source: family and EMS Mode of arrival: EMS History of Present Illness HPI narrative: 82 years old white female came to the emergency room with CPR in process. Patient was not feeling well, went to bed, and 15 minutes later the went to bed to check on him and found him blue and not breathing. Called 911 and then she started CPR. Patient was PEA most of the time, 2 episodes of V-fib, got shocked twice, then back to PEA. On arrival to ED patient was PEA at 22 bpm. PCR protocol was continued without success.. Family member at the bedside, patient was pronounced after 11 minutes in the emergency room. Related Data Home Medications Medication Instructions Recorded Confirmed amiodarone 200 mg tablet 200 mg PO QAM 07/20/19 03/04/23 aspirin 81 mg tablet,delayed 81 mg PO DAILY 07/20/19 03/04/23 release mecobalamin (vitamin B12) 1,000 1,000 mcg PO DAILY 03/16/22 03/04/23 mcg chewable tablet metformin 500 mg tablet,extended 500 mg PO QHS 01/19/23 03/04/23 release 24 hr simvastatin 20 mg tablet (Zocor) 40 mg PO DAILY 01/19/23 03/04/23 spironolactone 25 mg tablet 25 mg PO DAILY 01/19/23 03/04/23 (Aldactone) Allergies Allergy/AdvReac Type Severity Reaction Status Date / Time No Known Allergies Allergy Verified 03/04/23 08:59 Review of Systems Review of Systems: ROS unobtainable: Yes unobtainable due to endotracheal tube and unobtainable due to medical condition [facility] Past Medical History Medical History Acute exacerbation of CHF (congestive heart failure) Acute exacerbation of CHF (congestive heart failure) Acute on chronic systolic congestive heart failure Allergic rhinitis Anemia B12 deficiency Benign prostatic hyperplasia Chronic kidney disease Congestive heart failure Coronary artery disease Fatigue History of peptic ulcer disease Hyperlipidemia Hypertension Insomnia Ischemic cardiomyopathy Myocardial infarction Obstructive sleep apnea on CPAP Osteoarthritis Paroxysmal atrial fibrillation Type 2 diabetes mellitus 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 Exam 11/25/2022 with mild nonproliferative retinopathy. Vitamin D deficiency Weakness Surgical History Surgical History History of bladder surgery History of cardiac cath History of coronary artery bypass graft History of tonsillectomy Family History Family History Mother Diabetes mellitus Cerebrovascular accident Hypertension Heart disease Sibling Diabetes mellitus Lupus (systemic lupus erythematosus) Cerebrovascular accident Cancer Hypertension Heart disease Grandparent Diabetes mellitus Heart disease Other Aneurysm Breast cancer COPD (chronic obstructive pulmonary disease) Social History Social History Social History: Surrogate medical decision maker: Cristiane Beckgenet, spouse. Code status: Full code. Smoking packs per day: 1 Smoking cigarettes per day: 20.0 Years smoked: 10 Smoking pack-years: 10.00 Smoking status: Former smoker Tobacco type: cigarettes Second hand tobacco smoke exposure: Yes Smoking end date: 09/27/66 Alcohol intake: never Drinks per week: 1 Alcohol use details: Rarely Substance use: never Substance use type: does not use Lack of Transportation: No Lack of Food: Never True Current Housing: I Have Housing Concerned About Future Housing: Decline to Answer Difficulty Paying Gas/Electric Bills: Decline to Answer Difficulty Paying for Meds: Decline to Answer Current
--- NOTE | 2023-03-06 14:18 | PC.NURSE ---
Family requested that pt have his tubes and lined pulled. After being cleared, RN pulls pt's IV, IO, and ET tube. Family is returned to the room with pt.
--- NOTE | 2023-03-06 14:28 | PC.NURSE ---
While cleaning pt, RN and EMS clear pt's pockets and return to family. A phone, wallet, money clip with queen inside, car keys, and wedding ring are given to family.
== END 2023-03-06 14:50 | disposition expired ==
PROVIDERS: Emergency Provider Emergency Medicine; PCP Nurse Practitioner Family
DX: I46.9 Cardiac arrest, cause unspecified (principal); I13.0 Hypertensive heart and chronic kidney disease with heart failure and stage 1 through stage 4 chronic kidney disease, or unspecified chronic kidney disease; I50.43 Acute on chronic combined systolic (congestive) and diastolic (congestive) heart failure; E11.22 Type 2 diabetes mellitus with diabetic chronic kidney disease; N18.9 Chronic kidney disease, unspecified; I25.10 Atherosclerotic heart disease of native coronary artery without angina pectoris; I25.5 Ischemic cardiomyopathy; I25.2 Old myocardial infarction; G47.33 Obstructive sleep apnea (adult) (pediatric); I48.0 Paroxysmal atrial fibrillation; E11.3299 Type 2 diabetes mellitus with mild nonproliferative diabetic retinopathy without macular edema, unspecified eye; E78.5 Hyperlipidemia, unspecified; Z95.1 Presence of aortocoronary bypass graft; Z87.891 Personal history of nicotine dependence; Z79.82 Long term (current) use of aspirin; Z79.84 Long term (current) use of oral hypoglycemic drugs
CPT/HCPCS: 92950; 99285; J0171